=== PATIENT | female | born 1955 | race Caucasian/White ===

== ENCOUNTER 2022-01-21 21:33 | Inpatient (IN) | payer MEDICARE ==
[~2022-01-21] VITALS: Ht 167.6 cm; Wt 73.7 kg
[2022-01-21] MEDS ORDERED: methylPREDNISolone SOD SUCC PF 125 MG/2 ML VIAL. ONE (21:39)
[2022-01-21] MEDS ORDERED: methylPREDNISolone SOD SUCC PF 125 MG/2 ML VIAL. IV ONE (21:45)
[2022-01-21] MEDS ORDERED: cefTRIAXone IV Push 1 GM VIAL. IVP ONE (21:45)
[2022-01-21] MEDS ORDERED: IPRATRPIUM/ALBUTEROL 0.5/2.5MG 3 ML NEBU. NEB ONE (21:45)
[2022-01-21] MEDS ORDERED: ALBUTEROL SULFATE 2.5 MG/3 ML NEBU. NEB ONE (21:45)
[2022-01-21] MEDS ORDERED: IPRATRPIUM/ALBUTEROL 0.5/2.5MG 3 ML NEBU. ONE (21:47)
[2022-01-21] MEDS ORDERED: ALBUTEROL SULFATE 2.5 MG/3 ML NEBU. ONE (21:47)
[2022-01-21 21:56] LABS: BASO # 0.1 x10^3/uL (0.0-0.2); BASO % 1 % (0-3); EOS # 0.3 x10^3/uL (0.0-0.7); EOS % 2 % (0-3); HEMATOCRIT 49.9 % (36.0-47.0); HEMOGLOBIN 16.3 g/dL (12.0-15.5); LYMPH # 8.3 x10^3/uL (1.0-4.8); LYMPH % 49 % (24-48); MEAN CORPUSCULAR HEMOGLOBIN 32 pg (25-35); MEAN CORPUSCULAR HGB CONC 33 g/dL (31-37); MEAN CORPUSCULAR VOLUME 99 fL (79-100); MONO # 1.5 x10^3/uL (0.0-1.1); MONO % 9 % (0-9); NEUT # 6.7 x10^3/uL (1.8-7.7); NEUT % 39 % (31-73); PLATELET COUNT 345 x10^3/uL (140-400); RED BLOOD COUNT 5.06 x10^6/uL (3.50-5.40); RED CELL DISTRIBUTION WIDTH 12.9 % (11.5-14.5); WHITE BLOOD COUNT 16.9 x10^3/uL (4.0-11.0)
--- NOTE | 2022-01-21 22:04 | PHYS DOC ---
Past Medical History Past Surgical History: No Surgical History Smoking Status: Current Every Day Smoker Alcohol Use: None Adult General Chief Complaint Chief Complaint: DYSPNEA/RESPIRATORY DISTRESS HPI HPI The patient is a 66-year-old female with a history of hypertension and COPD not typically on home oxygen. She continues to smoke. She has no known other comorbidities. presents for evaluation of respiratory distress with onset 45 minutes to an hour prior to arrival. Patient states she suddenly had a hard time breathing at home. She called 911 and on EMS arrival she was noted to have a room air oxygen saturation of about 80% and to be somewhat cyanotic, though still appropriately responsive. Tachypnea, accessory muscle use and soft wheezes to all zhou were also noted during EMS transport. She was escalated t o nonrebreather oxygen support en route. Upon arrival to the emergency department patient has cyanosis of fingers and toes and is diaphoretic but remains alert, oriented and appropriately responsive. She is able to tell me that she has no pain anywhere including to her chest. Only symptom is shortness of breath. She moves all extremities equally. Vital signs are notable for tachycardia, tachypnea, diminished oxygen saturation on 15L by NRB (~85%), and hypertension. EKG obtained and shows no acute ischemic changes. Chest x-ray obtained and shows flattening of diaphragms but no pneumothorax, confluent infiltrate, overt pulmonary edema or other acute process in the chest. BiPAP initiated with inline bronchodilator therapy. Solu-Medrol given. Empiric Rocephin and azithromycin administered after cultures. ABG obtained and labs drawn. With all of the above interventions, patient is dramatically improved, pink, warm and dry with normalized vital signs. Review of Systems Review of Systems A 12 point review of systems was completed and was negative except where noted in HPI above. Current Medications Current Medications Current Medications Medications (Trade) Dose Ordered Sig/Terence Start Time Stop Time Status Last Admin Dose Admin Albuterol Sulfate (Ventolin Neb Soln) 2.5 mg 1X ONCE 01/21/22 21:45 01/21/22 22:05 DC 01/21/22 21:45 2.5 MG Albuterol/ Ipratropium (Duoneb) 3 ml 1X ONCE 01/21/22 21:45 01/21/22 22:05 DC 01/21/22 22:07 3 ML Azithromycin 500 mg/Sodium Chloride 250 ml @ 250 mls/hr 1X ONCE 01/21/22 22:15 01/21/22 23:14 DC 01/21/22 22:15 250 MLS/HR Ceftriaxone Sodium (Rocephin) 1 gm 1X ONCE 01/21/22 21:45 01/21/22 22:05 DC 01/21/22 21:45 1 GM Methylprednisolone Sodium Succinate (SOLU-Medrol 125MG VIAL) 125 mg 1X ONCE 01/21/22 21:45 01/21/22 22:05 DC 01/21/22 21:45 125 MG Ondansetron HCl (Zofran) 4 mg STK-MED ONCE 01/21/22 22:35 01/21/22 22:35 DC Allergies Allergies Allergies Coded Allergies Type Severity Reaction Last Updated Verified No Known Allergies Allergy Unknown 01/21/22 Yes Physical Exam Physical Exam 66-year-old female appearing acutely ill, diaphoretic and with cyanosis of fingers and toes. Head is normocephalic and atraumatic. Neck is supple and nontender. No JVD. Oropharynx is moist. Lungs with markedly diminished breath sounds to all zhou but soft wheezes noted globally without other adventitious sounds heard. Tachypnea and accessory muscle use also noted. There is a normal S1 and S2 without rubs or gallops and capillary refill is appropriate, less than 2 seconds globally. Abdomen is soft, nontender and nondistended without pulsatile mass. Skin is cool and moist and with distal cyanosis as above. Psychiatrically, the patient demonstrates appropriate mood and affect and is alert. Neurologically, patient is alert and oriented x4, moves all extremities equally and no lateralizing deficits are seen. Evaluation of the extremities reveals BUEs and BLEs neurovascularly intact distally with strength 5-5, sensation intact light touch in all nerve distributions, radial, DP and PT pulses 2+ and equal bilaterally, capillary refill less than 2 seconds, hands and feet warm and well-perfused. No dependent peripheral edema distally. No calf tenderness swelling bilaterally. Homans test is negative bilaterally. Current Patient Data Vital Signs Vital Signs Date Time Temp Pulse Resp B/P (MAP) Pulse Ox O2 Delivery O2 Flow Rate FiO2 01/21/22 22:35 126 20 161/109 (126) 100 BiPAP/CPAP 01/21/22 21:45 98.9 98.9 Lab Values Laboratory Tests Test 01/21/22 21:40 01/21/22 22:00 01/21/22 22:05 White Blood Count 16.9 x10^3/uL (4.0-11.0) H Red Blood Count 5.06 x10^6/uL (3.50-5.40) Hemoglobin 16.3 g/dL (12.0-15.5) H Hematocrit 49.9 % (36.0-47.0) H Mean Corpuscular Volume 99 fL (79-100) Mean Corpuscular Hemoglobin 32 pg (25-35) Mean Corpuscular Hemoglobin Concent 33 g/dL (31-37) Red Cell Distribution Width 12.9 % (11.5-14.5) Platelet Count 345 x10^3/uL (140-400) Neutrophils (%) (Auto) 39 % (31-73) Lymphocytes (%) (Auto) 49 % (24-48) H Monocytes (%) (Auto) 9 % (0-9) Eosinophils (%) (Auto) 2 % (0-3) Basophils (%) (Auto) 1 % (0-3) Neutrophils # (Auto) 6.7 x10^3/uL (1.8-7.7) Lymphocytes # (Auto) 8.3 x10^3/uL (1.0-4.8) H Monocytes # (Auto) 1.5 x10^3/uL (0.0-1.1) H Eosinophils # (Auto) 0.3 x10^3/uL (0.0-0.7) Basophils # (Auto) 0.1 x10^3/uL (0.0-0.2) Segmented Neutrophils % 39 % (35-66) Band Neutrophils % 1 % (0-9) Lymphocytes % 51 % (24-48) H Atypical Lymphocytes % (Manual) 2 % (0-0) H Monocytes % 5 % (0-10) Eosinophils % 2 % (0-5) Toxic Granulation Slight Platelet Estimate Adequate (ADEQUATE) Prothrombin Time 12.8 SEC (11.7-14.0) Prothrombin Time INR 1.0 (0.8-1.1) Activated Partial Thromboplast Time 23 SEC (24-38) L D-Dimer (Iman) 1.90 ug/mlFEU (0.00-0.50) H Sodium Level 137 mmol/L (136-145) Potassium Level 4.2 mmol/L (3.5-5.1) Chloride Level 98 mmol/L (98-107) Carbon Dioxide Level 22 mmol/L (21-32) Anion Gap 17 (6-14) H Blood Urea Nitrogen 23 mg/dL (7-20) H Creatinine 1.2 mg/dL (0.6-1.0) H Estimated GFR (Cockcroft-Gault) 44.7 BUN/Creatinine Ratio 19 (6-20) Glucose Level 305 mg/dL (70-99) H Lactic Acid Level 9.9 mmol/L (0.4-2.0) *H Calcium Level 9.1 mg/dL (8.5-10.1) Total Bilirubin 0.2 mg/dL (0.2-1.0) Aspartate Amino Transferase (AST) 21 U/L (15-37) Alanine Aminotransferase (ALT) 21 U/L (14-59) Alkaline Phosphatase 90 U/L (46-116) Troponin I High Sensitivity 51 ng/L (4-50) H LO-Mox-F-Type Natriuretic Peptide 726 pg/mL (0-124) H Total Protein 7.7 g/dL (6.4-8.2) Albumin 3.7 g/dL (3.4-5.0) Albumin/Globulin Ratio 0.9 (1.0-1.7) L Procalcitonin < 0.10 ng/mL (0.00-0.10) Influenza Type A Antigen Negative (NEGATIVE) Influenza Type B Antigen Negative (NEGATIVE) SARS-CoV-2 Antigen (Rapid) Negative (NEGATIVE) O2 Saturation 96 % (92-99) Arterial Blood pH 7.35 (7.35-7.45) Arterial Blood pCO2 at Patient Temp 38 mmHg (35-46) Arterial Blood pO2 at Patient Temp 94 mmHg (65-108) Arterial Blood HCO3 20 mmol/L (21-28) L Arterial Blood Base Excess -5 mmol/L (-3-3) L Oxyhemoglobin 94.2 % Methemoglobin 0.5 % (0.0-1.9) Carbon Monoxide, Quantitative 1.8 % (0.0-1.9) FiO2 100% Laboratory Tests 01/21/22 21:40 Laboratory Tests 01/21/22 21:40 EKG EKG Sinus rhythm, rate 118, no acute ST elevation or depression, PA 106, QRS 70, QTc 448, EP interpretation. Nonischemic tracing, intervals appropriate. Radiology/Procedures Radiology/Procedures Study: XR CHEST 1V Indication: Shortness of air. Comparison: None. Findings: Upper limits of normal size of the cardiomediastinal silhouette. Aortic calcific atherosclerosis. Patchy bilateral airspace opacities on background of increased interstitial markings. Quinten B lines. No layering effusion, lobar consolidation or pneumothorax. The bones appear osteopenic. Impression: Findings indicative of interstitial/alveolar edema. No layering effusion. A superimposed atypical infectious process is not excluded. Electronically signed by: PAULA SHANKAR MD (01/21/2022 10:09 PM) [facility] DICTATED and SIGNED BY: PAULA SHANKAR MD DATE: 01/21/222207 Exam: CT of chest with contrast INDICATION: Dyspnea, acute hypokalemia respiratory failure TECHNIQUE: Sequential axial images through the chest obtained following the administration of 90 mL of Isovue-370 IV contrast. Sagittal and coronal reformatted images were reconstructed from the axial data and reviewed. 3-D reformatted images were reconstructed from the axial data and reviewed. Exposure: One or more of the following in the visualized dose reduction techniques were utilized for this examination: 1. Automated exposure control 2. Adjustment of the MA and/or KV according to patient size 3. Use of iterative of reconstructive technique Comparisons: Chest x-ray same day FINDINGS: Visualized portions of the thyroid are unremarkable. No enlarged mediastinal lymph nodes are identified. Heart size is normal. No pericardial effusion. Thoracic aorta has normal course and caliber. Pulmonary artery is not enlarged. No pulmonary embolus identified within the main, lobar or segmental pulmonary arteries. Airways are patent. Mild bronchial wall thickening is noted. Patchy consolidative changes at the lower lobes. There is intralobular septal thickening in the diffuse ground glass opacity noted in the lungs. Moderate centrilobular emphysematous change at the upper lungs. No pleural effusion or thickening. Visualized upper abdomen is unremarkable. Benign lipid rich adenoma the right adrenal gland. Compression fracture of the T12 superior endplate with less than 25% height loss. IMPRESSION: 1. No pulmonary embolus identified within the main, lobar or segmental pulmonary arteries. 2. Patchy consolidative changes at the lower lobes. Infectious or inflammatory in etiology. 3. Intralobular septal thickening and diffuse ground glass opacity could relate to an element pulmonary edema. Electronically signed by: Blair Del Cid MD (01/21/2022 11:35 PM) [facility] DICTATED and SIGNED BY: BLAIR DEL CID MD DATE: 01/21/22 2330 Course & Med Decision Making Course & Med Decision Making Patient stabilized from a respiratory standpoint with the interventions noted in the narrative above. Awaiting lab work; plan is for inpatient admission. This is discussed with the patient who is in agreement. 2330: Patient resting comfortably in no acute distress on serial reassessments. Continues to feel much, much better. Able to speak comfortably in full sentences. Lungs are now clear to auscultation; no longer wheezing. Large work-up is as above, with borderline high-sensitivity troponin without any associated chest pain or any ischemic changes on EKG, elevated D-dimer with no evidence of PE on CT angiography of the chest, and a marked lactic acidemia. This was drawn on arrival with the patient was in severe respiratory distress; favor stress response and doubt sepsis. I have covered with Rocephin and azithromycin for infectious etiologies as above after cultures were drawn. A liter of crystalloid has also been given. Will follow 3-hour lactic acid level and serial troponins. BNP modestly elevated with some findings concerning for a component of mild congestive failure on CT angiography of the chest. Have therefore given a small dose of IV Lasix. BiPAP settings have been titrated down significantly. Proceeding with ICU admission at this time. Dr. Liane Casillas graciously accepts Ms. Alexander to her care. Critical care time today was 62 minutes. Dragon Disclaimer Dragon Disclaimer This electronic medical record was generated, in whole or in part, using a voice recognition dictation system. Departure Departure Impression: Primary Impression: COPD with acute exacerbation Additional Impressions: Acute hypoxemic respiratory failure Acute exacerbation of CHF (congestive heart failure) Disposition: ADMITTED INPATIENT Condition: GUARDED Problem Qualifiers Additional Impressions: Acute exacerbation of CHF (congestive heart failure) Heart failure type: unspecified Qualified Codes: I50.9 - Heart failure, unspecified EDWIGE WHEELER MD Jan 21, 2022 22:04
[2022-01-21 22:05] LABS: PROTHROMBIN TIME PATIENT 12.8 SEC (11.7-14.0)
[2022-01-21 22:08] LABS: CALCIUM 9.1 mg/dL (8.5-10.1); CREATININE 1.2 mg/dL (0.6-1.0); GFR 44.7; POTASSIUM 4.2 mmol/L (3.5-5.1)
[2022-01-21 22:11] LABS: BASE EXCESS COOX -5 mmol/L (-3-3); HCO3 COOX 20 mmol/L (21-28); METHEMOGLOBIN 0.5 % (0.0-1.9); OXYHEMOGLOBIN 94.2 %; PCO2 COOX 38 mmHg (35-46); PO2 COOX 94 mmHg (65-108); SAT O2 COOX 96 % (92-99)
--- NOTE | 2022-01-21 22:11 | RAD ---
Study: XR CHEST 1V Indication: Shortness of air. Comparison: None. Findings: Upper limits of normal size of the cardiomediastinal silhouette. Aortic calcific atherosclerosis. Patchy bilateral airspace opacities on background of increased interstitial markings. Quinten B lines. No layering effusion, lobar consolidation or pneumothorax. The bones appear osteopenic. Impression: Findings indicative of interstitial/alveolar edema. No layering effusion. A superimposed atypical inf ectious process is not excluded. Electronically signed by: PAULA SHANKAR MD (01/21/2022 10:09 PM) [facility]
[2022-01-21 22:14] LABS: ALBUMIN 3.7 g/dL (3.4-5.0); ALBUMIN/GLOBULIN RATIO 0.9 (1.0-1.7); TOTAL BILIRUBIN 0.2 mg/dL (0.2-1.0); TOTAL PROTEIN 7.7 g/dL (6.4-8.2)
[2022-01-21] MEDS ORDERED: AZITHROMYCIN 500 MG in IV NORMAL SALINE 250ML 250 ML IV ONE (22:15)
[2022-01-21 22:22] LABS: INFLUENZA A PATIENT NEGATIVE (NEGATIVE); INFLUENZA B PATIENT NEGATIVE (NEGATIVE)
[2022-01-21] MEDS ORDERED: ONDANSETRON PF 4 MG/2 ML VIAL. ONE (22:35)
[2022-01-21] MEDS ORDERED: IV NORMAL SALINE 1000ML BAG 1,000 ML IV ONE (22:45)
[2022-01-21] MEDS ORDERED: ONDANSETRON PF 4 MG/2 ML VIAL. IVP ONE (22:45)
[2022-01-21 23:06] LABS: % ATYL 2 % (0-0); % BANDS 1 % (0-9); % EOS 2 % (0-5); % LYMPHS 51 % (24-48); % MONOS 5 % (0-10); % SEGS 39 % (35-66); PLT ESTIMATE ADEQUATE (ADEQUATE); TOXIC GRANULATION SLIGHT
[2022-01-21] MEDS ORDERED: IOHEXOL 350 MG/ML 100 ML VIAL. IV ONE (23:15)
[2022-01-21] MEDS ORDERED: CONTRAST GIVEN. MC PRN (23:15)
--- NOTE | 2022-01-21 23:38 | RAD ---
Exam: CT of chest with contrast INDICATION: Dyspnea, acute hypokalemia respiratory failure TECHNIQUE: Sequential axial images through the chest obtained following the administration of 90 mL o f Isovue-370 IV contrast. Sagittal and coronal reformatted images were reconstructed from the axial d kwesi and reviewed. 3-D reformatted images were reconstructed from the axial data and reviewed. Exposure: One or more of the following in the visualized dose reduction techniques were utilized for this examination: 1. Automated exposure control 2. Adjustment of the MA and/or KV according to patient size 3. Use of iterative of reconstructive technique Comparisons: Chest x-ray same day FINDINGS: Visualized portions of the thyroid are unremarkable. No enlarged mediastinal lymph nodes are identifi ed. Heart size is normal. No pericardial effusion. Thoracic aorta has normal course and caliber. Pulmonar y artery is not enlarged. No pulmonary embolus identified within the main, lobar or segmental pulmona ry arteries. Airways are patent. Mild bronchial wall thickening is noted. Patchy consolidative changes at the lowe r lobes. There is intralobular septal thickening in the diffuse ground glass opacity noted in the alisson gs. Moderate centrilobular emphysematous change at the upper lungs. No pleural effusion or thickening . Visualized upper abdomen is unremarkable. Benign lipid rich adenoma the right adrenal gland. Compression fracture of the T12 superior endplate with less than 25% height loss. IMPRESSION: 1. No pulmonary embolus identified within the main, lobar or segmental pulmonary arteries. 2. Patchy consolidative changes at the lower lobes. Infectious or inflammatory in etiology. 3. Intralobular septal thickening and diffuse ground glass opacity could relate to an element pulmon russel edema. Electronically signed by: Blair Dodd MD (01/21/2022 11:35 PM) [facility]
[2022-01-22] VITALS (28 sets, daily range): BP systolic 105–150; BP diastolic 69–99
[2022-01-22] MEDS ORDERED: FUROSEMIDE 20 MG/2 ML VIAL. IVP ONE
[2022-01-22] MEDS ORDERED: ACETAMINOPHEN 325 MG TABLET. PO PRN (00:30)
[2022-01-22] MEDS ORDERED: ONDANSETRON PF 4 MG/2 ML VIAL. IVP PRN (00:30)
[2022-01-22] MEDS ORDERED: HEPARIN for IV BOLUS 10,000 UNIT/10 ML VIAL. IV PRN (01:45)
[2022-01-22] MEDS ORDERED: HEPARIN 25,000UTS/250ML PREMIX 250 ML IV PRN (01:45)
[2022-01-22] MEDS ORDERED: HEPARIN for IV BOLUS 10,000 UNIT/10 ML VIAL. IV ONE (01:45)
--- NOTE | 2022-01-22 02:11 | EKG ---
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
[2022-01-22] MEDS: IPRATRPIUM/ALBUTEROL 0.5/2.5MG 3 ML NEBU. NEB SCH ×4 (07:56→20:32)
--- NOTE | 2022-01-22 08:39 | PDOC ---
PULMONARY PROGRESS NOTES DATE: 01/22/22 TIME: 08:30 Vitals Vital Signs Date Time Temp Pulse Resp B/P (MAP) Pulse Ox O2 Delivery O2 Flow Rate FiO2 01/22/22 07:57 94 Nasal Cannula 4.0 01/22/22 06:00 98 20 106/71 (83) 01/22/22 04:00 97.6 97.6 Labs Laboratory Tests Test 01/21/22 21:40 01/21/22 22:00 01/21/22 22:05 01/22/22 00:50 White Blood Count 16.9 x10^3/uL (4.0-11.0) Red Blood Count 5.06 x10^6/uL (3.50-5.40) Hemoglobin 16.3 g/dL (12.0-15.5) Hematocrit 49.9 % (36.0-47.0) Mean Corpuscular Volume 99 fL (79-100) Mean Corpuscular Hemoglobin 32 pg (25-35) Mean Corpuscular Hemoglobin Concent 33 g/dL (31-37) Red Cell Distribution Width 12.9 % (11.5-14.5) Platelet Count 345 x10^3/uL (140-400) Neutrophils (%) (Auto) 39 % (31-73) Lymphocytes (%) (Auto) 49 % (24-48) Monocytes (%) (Auto) 9 % (0-9) Eosinophils (%) (Auto) 2 % (0-3) Basophils (%) (Auto) 1 % (0-3) Neutrophils # (Auto) 6.7 x10^3/uL (1.8-7.7) Lymphocytes # (Auto) 8.3 x10^3/uL (1.0-4.8) Monocytes # (Auto) 1.5 x10^3/uL (0.0-1.1) Eosinophils # (Auto) 0.3 x10^3/uL (0.0-0.7) Basophils # (Auto) 0.1 x10^3/uL (0.0-0.2) Segmented Neutrophils % 39 % (35-66) Band Neutrophils % 1 % (0-9) Lymphocytes % 51 % (24-48) Atypical Lymphocytes % (Manual) 2 % (0-0) Monocytes % 5 % (0-10) Eosinophils % 2 % (0-5) Toxic Granulation Slight Platelet Estimate Adequate (ADEQUATE) Prothrombin Time 12.8 SEC (11.7-14.0) Prothromb Time International Ratio 1.0 (0.8-1.1) Activated Partial Thromboplast Time 23 SEC (24-38) D-Dimer (Iman) 1.90 ug/mlFEU (0.00-0.50) Sodium Level 137 mmol/L (136-145) Potassium Level 4.2 mmol/L (3.5-5.1) Chloride Level 98 mmol/L (98-107) Carbon Dioxide Level 22 mmol/L (21-32) Anion Gap 17 (6-14) Blood Urea Nitrogen 23 mg/dL (7-20) Creatinine 1.2 mg/dL (0.6-1.0) Estimated GFR (Cockcroft-Gault) 44.7 BUN/Creatinine Ratio 19 (6-20) Glucose Level 305 mg/dL (70-99) Lactic Acid Level 9.9 mmol/L (0.4-2.0) 2.6 mmol/L (0.4-2.0) Calcium Level 9.1 mg/dL (8.5-10.1) Total Bilirubin 0.2 mg/dL (0.2-1.0) Aspartate Amino Transf (AST/SGOT) 21 U/L (15-37) Alanine Aminotransferase (ALT/SGPT) 21 U/L (14-59) Alkaline Phosphatase 90 U/L (46-116) Troponin I High Sensitivity 51 ng/L (4-50) 1241 ng/L (4-50) AV-Bjg-J-Type Natriuretic Peptide 726 pg/mL (0-124) Total Protein 7.7 g/dL (6.4-8.2) Albumin 3.7 g/dL (3.4-5.0) Albumin/Globulin Ratio 0.9 (1.0-1.7) Procalcitonin < 0.10 ng/mL (0.00-0.10) Influenza Type A Antigen Negative (NEGATIVE) Influenza Type B Antigen Negative (NEGATIVE) SARS-CoV-2 Antigen (Rapid) Negative (NEGATIVE) O2 Saturation 96 % (92-99) Arterial Blood pH 7.35 (7.35-7.45) Arterial Blood pCO2 at Patient Temp 38 mmHg (35-46) Arterial Blood pO2 at Patient Temp 94 mmHg (65-108) Arterial Blood HCO3 20 mmol/L (21-28) Arterial Blood Base Excess -5 mmol/L (-3-3) Oxyhemoglobin 94.2 % Methemoglobin 0.5 % (0.0-1.9) Carbon Monoxide, Quantitative 1.8 % (0.0-1.9) FiO2 100% Test 01/22/22 03:50 Troponin I High Sensitivity 1314 ng/L (4-50) Laboratory Tests Test 01/21/22 21:40 01/21/22 22:00 01/21/22 22:05 01/22/22 00:50 White Blood Count 16.9 x10^3/uL (4.0-11.0) Red Blood Count 5.06 x10^6/uL (3.50-5.40) Hemoglobin 16.3 g/dL (12.0-15.5) Hematocrit 49.9 % (36.0-47.0) Mean Corpuscular Volume 99 fL (79-100) Mean Corpuscular Hemoglobin 32 pg (25-35) Mean Corpuscular Hemoglobin Concent 33 g/dL (31-37) Red Cell Distribution Width 12.9 % (11.5-14.5) Platelet Count 345 x10^3/uL (140-400) Neutrophils (%) (Auto) 39 % (31-73) Lymphocytes (%) (Auto) 49 % (24-48) Monocytes (%) (Auto) 9 % (0-9) Eosinophils (%) (Auto) 2 % (0-3) Basophils (%) (Auto) 1 % (0-3) Neutrophils # (Auto) 6.7 x10^3/uL (1.8-7.7) Lymphocytes # (Auto) 8.3 x10^3/uL (1.0-4.8) Monocytes # (Auto) 1.5 x10^3/uL (0.0-1.1) Eosinophils # (Auto) 0.3 x10^3/uL (0.0-0.7) Basophils # (Auto) 0.1 x10^3/uL (0.0-0.2) Segmented Neutrophils % 39 % (35-66) Band Neutrophils % 1 % (0-9) Lymphocytes % 51 % (24-48) Atypical Lymphocytes % (Manual) 2 % (0-0) Monocytes % 5 % (0-10) Eosinophils % 2 % (0-5) Toxic Granulation Slight Platelet Estimate Adequate (ADEQUATE) Prothrombin Time 12.8 SEC (11.7-14.0) Prothromb Time International Ratio 1.0 (0.8-1.1) Activated Partial Thromboplast Time 23 SEC (24-38) D-Dimer (Iman) 1.90 ug/mlFEU (0.00-0.50) Sodium Level 137 mmol/L (136-145) Potassium Level 4.2 mmol/L (3.5-5.1) Chloride Level 98 mmol/L (98-107) Carbon Dioxide Level 22 mmol/L (21-32) Anion Gap 17 (6-14) Blood Urea Nitrogen 23 mg/dL (7-20) Creatinine 1.2 mg/dL (0.6-1.0) Estimated GFR (Cockcroft-Gault) 44.7 BUN/Creatinine Ratio 19 (6-20) Glucose Level 305 mg/dL (70-99) Lactic Acid Level 9.9 mmol/L (0.4-2.0) 2.6 mmol/L (0.4-2.0) Calcium Level 9.1 mg/dL (8.5-10.1) Total Bilirubin 0.2 mg/dL (0.2-1.0) Aspartate Amino Transf (AST/SGOT) 21 U/L (15-37) Alanine Aminotransferase (ALT/SGPT) 21 U/L (14-59) Alkaline Phosphatase 90 U/L (46-116) Troponin I High Sensitivity 51 ng/L (4-50) 1241 ng/L (4-50) YQ-Lbd-N-Type Natriuretic Peptide 726 pg/mL (0-124) Total Protein 7.7 g/dL (6.4-8.2) Albumin 3.7 g/dL (3.4-5.0) Albumin/Globulin Ratio 0.9 (1.0-1.7) Procalcitonin < 0.10 ng/mL (0.00-0.10) Influenza Type A Antigen Negative (NEGATIVE) Influenza Type B Antigen Negative (NEGATIVE) SARS-CoV-2 Antigen (Rapid) Negative (NEGATIVE) O2 Saturation 96 % (92-99) Arterial Blood pH 7.35 (7.35-7.45) Arterial Blood pCO2 at Patient Temp 38 mmHg (35-46) Arterial Blood pO2 at Patient Temp 94 mmHg (65-108) Arterial Blood HCO3 20 mmol/L (21-28) Arterial Blood Base Excess -5 mmol/L (-3-3) Oxyhemoglobin 94.2 % Methemoglobin 0.5 % (0.0-1.9) Carbon Monoxide, Quantitative 1.8 % (0.0-1.9) FiO2 100% Test 01/22/22 03:50 Troponin I High Sensitivity 1314 ng/L (4-50) Impression . Full consult dictated see orders mostly CHF SYMONE RANDLE MD Jan 22, 2022 08:39
--- NOTE | 2022-01-22 10:41 | PDOC2 ---
JUAN MOYER FILTER PRESS PUMPER 01/22/22 1041: CARDIAC CONSULT DATE OF CONSULT Date of Consult DATE: 01/22/22 TIME: 10:20 REASON FOR CONSULT Reason for Consult: Acute respiratory failure, CHF REFERRING PHYSICIAN Referring Physician: Lily SOURCE Source: Chart review, Patient HISTORY OF PRESENT ILLNESS HISTORY OF PRESENT ILLNESS This is a pleasant 66 yo female admitted for complains of shortness of breath. Reports that she was walking up to her driveway yesterday with no chest pain and able to tolerate the activity but upon getting in the house she suddenly started having SOA. No chest pain, palpitations. No recent infection, antibiotic therapy or steroid therapy. No recent falls or injury. She was told that she has mild COPD and continues to smoke tobacco. No prior CAD, VTE, arrhythmia or covid-19. She is vaccinated for covid-19. also she had rheumatic fever as a child and has hx of murmur. Reports no recent stress test. She takes HTN, HLP meds but does not take ASA. No complains of fatigue or intermittent chest pain. She does have some bloating sometimes but more with the type of food she takes. She was treated with albuterol small dose lasix in ED and had bipap overnight and currently no respiratory symptoms and remains with no chest pain. No leg swelling, PND or orthopnea. PAST MEDICAL HISTORY Cardiovascular: HTN, Hyperlipidemia, Other (rheumatic fever) Pulmonary: COPD CENTRAL NERVOUS SYSTEM: Other (No pertinent history) GI: GERD Heme/Onc: No pertinent hx Hepatobiliary: No pertinent hx Psych: No pertinent hx Musculoskeletal: Osteoarthritis Rheumatologic: No pertinent hx Infectious disease: No pertinent hx ENT: No pertinent hx Renal/: UTI Endocrine: No pertinent hx Dermatology: No pertinent hx PAST SURGICAL HISTORY Past Surgical History: Total hip replacement (bilateral), Other (possible ureteral stent placement based on her description) FAMILY HISTORY Family History noncontributory to CV SOCIAL HISTORY Smoke: <1 pack per day (50 yrs) ALCOHOL: other (2 vodka shots nightly) Drugs: None Lives: Alone CURRENT MEDICATIONS CURRENT MEDICATIONS Current Medications Medications (Trade) Dose Ordered Sig/Terence Route PRN Reason Start Time Stop Time Status Last Admin Dose Admin Methylprednisolone Sodium Succinate (SOLU-Medrol 125MG VIAL) 125 mg 1X ONCE IV 01/21/22 21:45 01/21/22 22:05 DC 01/21/22 21:45 Albuterol/ Ipratropium (Duoneb) 3 ml 1X ONCE NEB 01/21/22 21:45 01/21/22 22:05 DC 01/21/22 22:07 Albuterol Sulfate (Ventolin Neb Soln) 2.5 mg 1X ONCE NEB 01/21/22 21:45 01/21/22 22:05 DC 01/21/22 21:45 Ceftriaxone Sodium (Rocephin) 1 gm 1X ONCE IVP 01/21/22 21:45 01/21/22 22:05 DC 01/21/22 21:45 Azithromycin 500 mg/Sodium Chloride 250 ml @ 250 mls/hr 1X ONCE IV 01/21/22 22:15 01/21/22 23:14 DC 01/21/22 22:15 Sodium Chloride 1,000 ml @ 1,000 mls/hr 1X ONCE IV 01/21/22 22:45 01/21/22 23:44 DC 01/21/22 22:42 Ondansetron HCl (Zofran) 4 mg 1X ONCE IVP 01/21/22 22:45 01/21/22 22:46 DC 01/21/22 22:42 Iohexol (Omnipaque 350 Mg/ml) 90 ml 1X ONCE IV 01/21/22 23:15 01/21/22 23:16 DC 01/21/22 23:10 Furosemide (Lasix) 20 mg 1X ONCE IVP 01/22/22 00:00 01/22/22 00:01 DC 01/22/22 01:18 Albuterol/ Ipratropium (Duoneb) 3 ml RTQID NEB 01/22/22 08:00 01/23/22 07:59 01/22/22 07:56 Heparin Sodium (Porcine) (Heparin Sodium) 4,000 unit 1X ONCE IV 01/22/22 01:45 01/22/22 01:46 DC 01/22/22 01:45 ALLERGIES ALLERGIES: Coded Allergies: No Known Allergies (Verified Allergy, Unknown, 01/21/22) ROS Review of System 14 point ROS evaluated with pertinent positives noted per HPI PHYSICAL EXAM General: Alert, Oriented X3, Cooperative, No acute distress HEENT: Atraumatic, Mucous membr. moist/pink Lungs: Other (diminished bases) Heart: Regular rate (ST), Normal S1, Normal S2, Other (2/6 systolic murmur to LLS border) Abdomen: Soft, No tenderness Extremities: No cyanosis, No edema Skin: No breakdown, No significant lesion Neuro: Normal speech, Sensation intact Psych/Mental Status: Mental status NL, Mood NL MUSCULOSKELETAL: Osteoarthritic changes both hands VITALS/I&O VITALS/I&O: Vital Signs Date Time Temp Pulse Resp B/P (MAP) Pulse Ox O2 Delivery O2 Flow Rate FiO2 01/22/22 07:57 94 Nasal Cannula 4.0 01/22/22 06:00 98 20 106/71 (83) 01/22/22 04:00 97.6 97.6 I & O 01/21/22 01/21/22 01/22/22 14:59 22:59 06:59 Intake Total 275 ml Output Total 400 ml Balance -125 ml LABS Lab: Laboratory Tests Test 01/21/22 21:40 01/21/22 22:00 01/21/22 22:05 01/22/22 00:50 White Blood Count 16.9 x10^3/uL (4.0-11.0) H Red Blood Count 5.06 x10^6/uL (3.50-5.40) Hemoglobin 16.3 g/dL (12.0-15.5) H Hematocrit 49.9 % (36.0-47.0) H Mean Corpuscular Volume 99 fL (79-100) Mean Corpuscular Hemoglobin 32 pg (25-35) Mean Corpuscular Hemoglobin Concent 33 g/dL (31-37) Red Cell Distribution Width 12.9 % (11.5-14.5) Platelet Count 345 x10^3/uL (140-400) Neutrophils (%) (Auto) 39 % (31-73) Lymphocytes (%) (Auto) 49 % (24-48) H Monocytes (%) (Auto) 9 % (0-9) Eosinophils (%) (Auto) 2 % (0-3) Basophils (%) (Auto) 1 % (0-3) Neutrophils # (Auto) 6.7 x10^3/uL (1.8-7.7) Lymphocytes # (Auto) 8.3 x10^3/uL (1.0-4.8) H Monocytes # (Auto) 1.5 x10^3/uL (0.0-1.1) H Eosinophils # (Auto) 0.3 x10^3/uL (0.0-0.7) Basophils # (Auto) 0.1 x10^3/uL (0.0-0.2) Segmented Neutrophils % 39 % (35-66) Band Neutrophils % 1 % (0-9) Lymphocytes % 51 % (24-48) H Atypical Lymphocytes % (Manual) 2 % (0-0) H Monocytes % 5 % (0-10) Eosinophils % 2 % (0-5) Toxic Granulation Slight Platelet Estimate Adequate (ADEQUATE) Prothrombin Time 12.8 SEC (11.7-14.0) Prothrombin Time INR 1.0 (0.8-1.1) Activated Partial Thromboplast Time 23 SEC (24-38) L D-Dimer (Iman) 1.90 ug/mlFEU (0.00-0.50) H Sodium Level 137 mmol/L (136-145) Potassium Level 4.2 mmol/L (3.5-5.1) Chloride Level 98 mmol/L (98-107) Carbon Dioxide Level 22 mmol/L (21-32) Anion Gap 17 (6-14) H Blood Urea Nitrogen 23 mg/dL (7-20) H Creatinine 1.2 mg/dL (0.6-1.0) H Estimated GFR (Cockcroft-Gault) 44.7 BUN/Creatinine Ratio 19 (6-20) Glucose Level 305 mg/dL (70-99) H Lactic Acid Level 9.9 mmol/L (0.4-2.0) *H 2.6 mmol/L (0.4-2.0) H Calcium Level 9.1 mg/dL (8.5-10.1) Total Bilirubin 0.2 mg/dL (0.2-1.0) Aspartate Amino Transferase (AST) 21 U/L (15-37) Alanine Aminotransferase (ALT) 21 U/L (14-59) Alkaline Phosphatase 90 U/L (46-116) Troponin I High Sensitivity 51 ng/L (4-50) H 1241 ng/L (4-50) H CB-Xnw-E-Type Natriuretic Peptide 726 pg/mL (0-124) H Total Protein 7.7 g/dL (6.4-8.2) Albumin 3.7 g/dL (3.4-5.0) Albumin/Globulin Ratio 0.9 (1.0-1.7) L Procalcitonin < 0.10 ng/mL (0.00-0.10) Influenza Type A Antigen Negative (NEGATIVE) Influenza Type B Antigen Negative (NEGATIVE) SARS-CoV-2 Antigen (Rapid) Negative (NEGATIVE) O2 Saturation 96 % (92-99) Arterial Blood pH 7.35 (7.35-7.45) Arterial Blood pCO2 at Patient Temp 38 mmHg (35-46) Arterial Blood pO2 at Patient Temp 94 mmHg (65-108) Arterial Blood HCO3 20 mmol/L (21-28) L Arterial Blood Base Excess -5 mmol/L (-3-3) L Oxyhemoglobin 94.2 % Methemoglobin 0.5 % (0.0-1.9) Carbon Monoxide, Quantitative 1.8 % (0.0-1.9) FiO2 100% Test 01/22/22 03:50 01/22/22 08:15 Troponin I High Sensitivity 1314 ng/L (4-50) H Heparin Anti-Xa Act, Unfractionated 0.32 IU/mL (0.30-0.70) Laboratory Tests 01/21/22 21:40 Laboratory Tests 01/21/22 21:40 ASSESSMENT/PLAN ASSESSMENT/PLAN 1. NSTEMI: trop continues to trend up, abnormal EKG. 2. HTN: initially labile 3. HLP: on home statin 4. AECOPD with continued tobacco use: per pulmonary 5. Lactic acidosis 6. Leukocytosis 7. Diastolic CHF: compensated Recommendations 1. TTE, repeat troponin and EKG. 2. Pretest probability is high for CAD. [facility] this afternoon, risks and benefits discussed and agreeable to proceed 3. ASA, continue heparin AURORA GONZALEZ MD 01/22/222055: CARDIAC CONSULT ASSESSMENT/PLAN ASSESSMENT/PLAN Patient seen and examined. Agree with PATHOLOGY TECHNOLOGIST's assessment and plan. Agree with cardiac cath for further evaluation of patient's NSTEMI Check 2D echo to assess LVF Continue management of AECOPD per pulm team Thank you for your consultation JUAN MOYER APRN Jan 22, 2022 10:41 AURORA GONZALEZ MD Jan 22, 2022 20:56
--- NOTE | 2022-01-22 11:01 | EKG ---
[facility] [address] [place] [address] Test Date: 2022-01-22 Test Time: 10:55:44 Pat Name: ARACELI GRAJEDA Department: Room: 115 1 Gender: F Network Operations Analyst: FERMIN : 1955 Requested By: JUAN MOYER Order Number: [id number] Reading MD: Claudio Rodriguez Measurements Intervals Jackman Rate: 94 P: 27 NH: 168 QRS: 21 QRSD: 74 T: 152 QT: 394 QTc: 499 Interpretive Statements SINUS RHYTHM LVH WITH REPOLARIZATION ABNORMALITY PROLONGED QT ABNORMAL ECG Electronically Signed On 02-01-2022 9:06:47 CDT by Claudio Rodriguez
[2022-01-22 11:19] LABS: CHOLESTEROL/HDL RATIO 1.7
[2022-01-22] MEDS ORDERED: AZITHROMYCIN 250 MG TABLET. PO ONE (12:00)
[2022-01-22] MEDS ORDERED: FUROSEMIDE 40 MG/4 ML VIAL. IVP ONE (12:00)
[2022-01-22] MEDS ORDERED: IV NORMAL SALINE 1000ML BAG 1,000 ML IV ONE (12:15)
[2022-01-22] MEDS ORDERED: ASPIRIN ENTERIC COATED 325 MG TABLET.DR. PO ONE (12:15)
--- NOTE | 2022-01-22 12:47 | CONS ---
DATE OF CONSULTATION: 01/22/2022 ATTENDING PHYSICIAN: Dr. Casillas. REASON FOR CONSULTATION: The patient is seen in pulmonary consultation at the request of Dr. Campos for abnormal x-ray. HISTORY OF PRESENT ILLNESS: The patient is a 66-year-old that presented to the Emergency Room with a history of hypertension, COPD, not on home oxygen. She continues to smoke. Presented with acute onset of shortness of breath, not associated with chest pain or pressure. Apparently, she was taken up a trash and became severely short of breath. EMS was summoned. Initially, she had saturations of 80%, she was placed on a nonrebreather, presented to the Emergency Room. The Emergency Room physician ordered an x-ray, which I personally reviewed. There is evidence of pulmonary infiltrates compatible with acute pulmonary edema. She was initially placed on noninvasive ventilation, started on Solu-Medrol, given empiric antibiotics and some IV Lasix, was transferred to the intensive care unit. She is currently off of BiPAP. She is on nasal cannula oxygen. She has a cough, mostly nonproductive. She feels better. She has never had anything like this happened to her in the past. She has been seen by Cardiology. Manager Psychiatry felt like that she had a non-ST segment elevation [place]. A TTE is currently pending. PAST MEDICAL HISTORY: Tobacco dependent, COPD, unknown FEV1. She does not experience frequent acute exacerbations. She has also a history of osteoarthritis to be specific. Hyperlipidemia, gastroesophageal reflux. PAST SURGICAL HISTORY: None. ALLERGIES: No known drug allergies. REVIEW OF SYSTEMS: As indicated above, otherwise a 10-point system was reviewed and negative. PHYSICAL EXAMINATION: CONSTITUTIONAL: No fever or chills. EYES: No change in visual acuity. HENT: No nasal congestion or sore throat. PULMONARY: As indicated above. CARDIOVASCULAR: As indicated above. GASTROINTESTINAL: No nausea, vomiting, diarrhea. GENITOURINARY: No dysuria or frequency. MUSCULOSKELETAL: No localized muscle aches or joint pains. SKIN: No new skin rashes. NEUROLOGIC: No headaches, diplopia or blurred vision. VACCINATION HISTORY: She is up-to-date on COVID, flu and pneumonia. MEDICATIONS: List was reviewed. She is currently on furosemide, heparin drip. PHYSICAL EXAMINATION: GENERAL: The patient appeared to be stated age. She was in no respiratory distress. VITAL SIGNS: Stable. O2 saturation was greater than 92%, currently on 2 liters. HEENT: Eyes: The sclerae were nonicteric. NECK: Jugular venous distention was not elevated. No lymphadenopathy. CHEST: Full expansion. LUNGS: Crackles in the bases. No wheezes. CARDIOVASCULAR: Regular rate and rhythm with S1, S2, no S3. ABDOMEN: Soft, nontender, nondistended. EXTREMITIES: No clubbing, cyanosis or edema. DIAGNOSTIC DATA: CT angiogram was performed. I personally reviewed it. There is no evidence of pulmonary embolism. There are infiltrates compatible with pulmonary edema. In addition, CTs are reviewed as indicated above. There are patchy consolidative changes in the lower lobe. There is interlobular septal thickening, ground glass opacities compatible with pulmonary edema. LABORATORY DATA: Labs were reviewed. White count was elevated. Hemoglobin and hematocrit were noted. Arterial blood gas; pH of 7.35, PaCO2 of 38, pO2 of 94. Electrolytes were noted. Lactic acid level initially elevated. Troponin was elevated. BUN and creatinine were elevated. IMPRESSION: 1. Acute hypoxemic respiratory failure, multifactorial. 2. Acute pulmonary edema, suspect diastolic. 3. Non-ST segment elevation myocardial infarction. 4. Abnormal CT chest revealing some consolidation in the lower bases, possible concomitant pneumonia. 5. Acute exacerbation of chronic obstructive pulmonary disease. 6. Tobacco dependent. 7. Hypertension. 8. Hyperlipidemia. PLAN: 1. Continue current support with oxygen supplementation. 2. Empiric antibiotics. 3. Follow Cardiology input. 4. IV Lasix. 5. Repeat CT chest in 6-8 weeks. 6. The patient is instructed on the importance of discontinued tobacco use. 7. I reviewed her sleep hygiene. Clinically, I do not think that the patient has obstructive sleep apnea. I do appreciate the privilege in sharing in the patient's care. Total cumulative critical care time of [address]: Erica TID: [id number]
--- NOTE | 2022-01-22 13:09 | HP ---
DATE OF SERVICE: 01/22/2022 ADMIT DATE: 01/21/2022 CHIEF COMPLAINT: Shortness of breath. HISTORY OF PRESENT ILLNESS: The patient is a pleasant, middle-aged female who has COPD and continues to smoke. She presented to the ER with shortness of breath. At first, we were concerned she might be having respiratory failure secondary to COPD and that could be a mild component of it, but actually, we suspect this might actually be cardiac in nature with heart failure and possible coronary artery disease. She has got elevations of her troponin to 1300, then we repleted it, it is up to 1700. She is now on a heparin drip in the ICU. She is going to cardiac cath this afternoon. PAST MEDICAL HISTORY: COPD, continued tobacco abuse, hypertension, hyperlipidemia, GERD, osteoarthritis, UTI. ALLERGIES: None. FAMILY HISTORY: Coronary artery disease. SOCIAL HISTORY: She is retired. She does smoke. No drink or drugs. MEDICATIONS: Reviewed. Please refer to the MRAD. REVIEW OF SYSTEMS: GENERAL: No history of weight change, weakness or fevers. SKIN: No bruising, hair changes or rashes. EYES: No blurred, double or loss of vision. NOSE AND THROAT: No history of nosebleeds, hoarseness or sore throat. HEART: No history of palpitations, chest pain or shortness of breath on exertion. LUNGS: Denies cough, hemoptysis, wheezing or shortness of breath. GASTROINTESTINAL: Denies changes in appetite, nausea, vomiting, diarrhea or constipation. GENITOURINARY: No history of frequency, urgency, hesitancy or nocturia. NEUROLOGIC: Denies history of numbness, tingling, tremor or weakness. PSYCHIATRIC: No history of panic, anxiety or depression. ENDOCRINE: No history of heat or cold intolerance, polyuria or polydipsia. EXTREMITIES: Denies muscle weakness, joint pain, pain on walking or stiffness. PHYSICAL EXAMINATION: VITALS: Within normal limits and are stable. GENERAL: No apparent distress. Alert and oriented. HEENT: Normal cephalic atraumatic, external auditory canals are patent. EYES: Extraocular muscles are intact, pupils are equally round and reactive to light and accommodation. MUSCULOSKELETAL: Well developed, well nourished, good range of motion. ENDOCRINE: No thyromegaly was palpated. LYMPHATICS: No cervical chain or axillary nodes were noted. HEMATOPOIETIC: No bruising. NECK: Supple, no JVD, no thyromegaly was noted. LUNGS: Clear to auscultation in all lung zhou without rhonchi or wheezing. HEART: RRR, S1, S2 present. Peripheral pulses intact, no obvious murmurs were noted. ABDOMEN: Soft, nontender. Positive bowel sounds. No organomegaly, normal bowel sounds. EXTREMITIES: Without any cyanosis, clubbing, or edema. Pedal pulses intact, Homans sign is negative. NEUROLOGIC: Normal speech, normal tone. A and O x 3, moves all extremities, no obvious focal deficits. PSYCHIATRIC: Normal affect, normal mood. Stable. SKIN: No ulcerations or rashes, good skin turgor, no jaundice. VASCULAR: Good capillary refill, neurovascular bundle appears to be intact. LABORATORY DATA: Troponin is 1702. ASSESSMENT AND PLAN: Shortness of breath with acute on chronic systolic and diastolic heart failure, suspect underlying coronary artery disease. We have consulted Cardiology. We have her on a heparin drip. She is going for cardiac catheterization this afternoon. Home medications. Deep vein thrombosis prophylaxis. Full code. Await cardiac catheterization results. FRANKLIN DR: LETI/lenard TID: [id number]
[2022-01-22] MEDS ORDERED: LIDOCAINE 1% PF 2 ML VIAL. ONE (14:38)
[2022-01-22] MEDS ORDERED: IODIXANOL 320 MG/ML 100 ML VIAL. ONE (14:38)
[2022-01-22] MEDS ORDERED: fentaNYL PF VIAL 100 MCG/2 ML VIAL ONE (15:23)
[2022-01-22] MEDS ORDERED: MIDAZOLAM HCL/PF 2 MG/2 ML VIAL. ONE (15:24)
[2022-01-22] MEDS ORDERED: HEPARIN for IV BOLUS 10,000 UNIT/10 ML VIAL. ONE (15:24)
[2022-01-22] MEDS ORDERED: NITROGLYCERIN 200 MCG/2 ML SYRINGE FOR CATH/VASC LAB. ONE (15:24)
[2022-01-22] MEDS ORDERED: VERAPAMIL 5 MG/2 ML VIAL. ONE (15:24)
--- NOTE | 2022-01-22 15:32 | PDOC ---
MODERATE SEDATION ASSESSMENT RISKS/ALTERNATIVES Risks/Alternatives Risks and alternatives of this type of sedation and procedure discussed with: RISK/ALTERNATIVES: Patient H & P ON CHART H & P H & P on chart and reviewed for co-morbid conditions and appropriate labs. H&P ON CHART: Yes STATUS PREG STATUS ASSESSED: N/A MEDS/ALLERGIES REVIEWED Meds/Allergies Reviewed Medications and Allergies including time and route of recently administered narcotics and sedatives. MEDS/ALLERGIES REVIEWED: Yes ASA RATING ASA RATING: II AIRWAY ASSESSMENT Airway Assessment Airway patency, oral function limitations, presence of caps, crowns, dentures, partials, and ability to extend neck assessed. AIRWAY ASSESSMENT: Yes MALLAMPATI SCORE MALLAMPATI SCORE: II PRE-SEDATION ASSESSMENT PRE-SEDATION ASSESSMENT: Yes AURORA GONZALEZ MD Jan 22, 2022 15:32
[2022-01-22] MEDS ORDERED: VERAPAMIL 5 MG/2 ML VIAL. IART ONE (15:45)
[2022-01-22] MEDS ORDERED: fentaNYL PF VIAL 100 MCG/2 ML VIAL IV ONE (15:45)
[2022-01-22] MEDS ORDERED: HEPARIN for IV BOLUS 10,000 UNIT/10 ML VIAL. IART ONE (15:45)
[2022-01-22] MEDS ORDERED: CONTRAST GIVEN. MC PRN (15:45)
[2022-01-22] MEDS ORDERED: NITROGLYCERIN 200 MCG/2 ML SYRINGE FOR CATH/VASC LAB. IART ONE (15:45)
[2022-01-22] MEDS ORDERED: MIDAZOLAM HCL/PF 2 MG/2 ML VIAL. IV ONE (15:45)
[2022-01-22] MEDS ORDERED: IODIXANOL 320 MG/ML 100 ML VIAL. IART ONE (15:45)
[2022-01-22] MEDS ORDERED: LIDOCAINE 1% PF 2 ML VIAL. INJ ONE (15:45)
--- NOTE | 2022-01-22 16:12 | CARD ---
MR#: [id number] Date of Study: 01/22/2022 Ordering Physician: JUAN MOYER, Referring Physician: JUAN MOYER, Tech: RT Jesus Manuel(R)() APPROVED REPORT Technologist: Misti Padgett RT(R)() Nurse: Melody Bhatti RN Procedure(s) performed: Left heart catheterization, selective coronary angiography and left ventricul ography via right transradial approach Fluoro time: 3.2 min Dose:35.6 Gycm2 Contrast:103ccs Mod Sed:24min. INDICATION The indication(s) include : non-STEMI . [facility] Clinical Frailty Scale [facility] Clinical Frailty Scale: Mildly Frail Heart Failure Heart Failure: No If Yes, Newly Diagnosed: No CASE TECHNIQUE IV conscious sedation was used throughout procedure with appropriate monitoring and was performed in the presence of a registered nurse who was an independent trained observer other than the physician p erforming the procedure. During this case, Fluoroscopy and low osmolar contrast were used for imaging . Specimen(s) Removed: No Estimated Blood loss: 15 cc's. PROCEDURE NARRATIVE After explaining the risks, benefits and alternative options, informed consent was obtained from doni ent. Patient was brought to the cardiac [employer] and right wrist was prepped and draped in the usual fashion after confirming a positive modified Jonah's test. Arterial access was obtained in the righ t radial artery and a 6 [place] sheath was inserted. 6 [place] Elvin catheter was used to perform sb ective angiography of the left and right coronary arteries. 6 [place] pigtail catheter was used to pe rform left ventriculography. Patient tolerated the procedure well. Hemostasis was achieved using TR band. There were no immediate complications. The following findings were noted. FINDINGS 1. Hemodynamics: Elevated left ventricular end-diastolic pressure of 25 mmHg consistent with acute s ystolic heart failure. No pullback gradient across the aortic valve. 2. Left ventriculography: Severe hypokinesis of the mid to distal myocardial segments and hyperdynam ic basal segments, pattern consistent with Takotsubo's cardiomyopathy. The ejection fraction is junaid mated at 35%. No significant mitral regurgitation seen. 3. Coronary angiography: a. The left main coronary artery arose from the left sinus of Valsalva, gave rise to the left anteri or descending and left circumflex arteries and did not show any significant stenosis. b. The left anterior descending artery did not show any significant stenosis. c. The left circumflex artery did not show any significant stenosis. d. The right coronary artery was a large and dominant vessel arising from the right sinus of Valsalv a that did not show any significant stenosis. Conclusion 1. No significant coronary artery disease 2. Severe hypokinesis of the mid to distal myocardial segments and hyperdynamic basal segments, cathy jesús consistent with Takotsubo's cardiomyopathy. The ejection fraction is estimated at 35%. Recommendations Optimization of medical therapy including beta-blockers and repeat 2D echo in 3 months. Signed by : Claudio Rodriguez, Electronically Approved : 01/22/2022 16:12:06
--- NOTE | 2022-01-22 17:20 | NUR ---
Pt had heparin gtt infusing this morning, cardiology came and saw pt, decided to cath her at 1530, pt signed consent, family and pt agreeable with plan. 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 pt back with JORDON hoff, site WDL, air released per protocol. Addendum: 01/22/22 at 1936 by ELIAS TOLBERT RN IV LASIX WAS NOT GIVEN EARLIER CARDIOLOGY THEN STATED THEY WANTED HYDRATION FOR PROCEDURE AND PT DID NOT WANT TO HAVE TO URINATE DURING CARDIAC CATH. PT NOT SOB OR SHOWING ANY SIGNS OF OVERT FLUID OVERLOAD, ABLE TO LAY COMPLETELY FLAT IN BED
[2022-01-22] MEDS ORDERED: LOSA-73 PO (17:30)
[2022-01-22] MEDS ORDERED: METO100T7 PO (17:30)
[2022-01-22] MEDS ORDERED: VERA240C2 PO (17:30)
[2022-01-22] MEDS ORDERED: HYDR12.58 PO (17:30)
[2022-01-22] MEDS ORDERED: SERT100T PO (17:30)
[2022-01-22] MEDS ORDERED: ATOR10TA60 PO (17:30)
[2022-01-23] VITALS (13 sets, daily range): BP systolic 120–165; BP diastolic 75–103
[2022-01-23 05:22] LABS: CALCIUM 8.3 mg/dL (8.5-10.1); CREATININE 0.8 mg/dL (0.6-1.0); GFR 71.3; POTASSIUM 3.1 mmol/L (3.5-5.1)
[2022-01-23 06:42] LABS: BASO % 0 % (0-3); EOS % 0 % (0-3); HEMATOCRIT 36.9 % (36.0-47.0); HEMOGLOBIN 12.2 g/dL (12.0-15.5); LYMPH # 1.1 x10^3/uL (1.0-4.8); LYMPH % 10 % (24-48); MEAN CORPUSCULAR HEMOGLOBIN 32 pg (25-35); MEAN CORPUSCULAR HGB CONC 33 g/dL (31-37); MEAN CORPUSCULAR VOLUME 96 fL (79-100); MONO # 0.8 x10^3/uL (0.0-1.1); MONO % 7 % (0-9); NEUT # 9.3 x10^3/uL (1.8-7.7); NEUT % 82 % (31-73); PLATELET COUNT 210 x10^3/uL (140-400); RED BLOOD COUNT 3.83 x10^6/uL (3.50-5.40); RED CELL DISTRIBUTION WIDTH 12.5 % (11.5-14.5); WHITE BLOOD COUNT 11.3 x10^3/uL (4.0-11.0)
[2022-01-23] MEDS ORDERED: POTASSIUM CHLORIDE 20 MEQ TABLET.ER. PO ONE (07:15)
[2022-01-23] MEDS: ASPIRIN ENTERIC COATED 81 MG TABLET.DR. PO SCH (08:40)
[2022-01-23] MEDS: AZITHROMYCIN 250 MG TABLET. PO SCH (08:41)
--- NOTE | 2022-01-23 09:41 | PDOC ---
PULMONARY PROGRESS NOTES DATE: 01/23/22 TIME: 09:41 Subjective Patient feels better compared to yesterday still somewhat short of breath no chest pain no pressure Vitals Vital Signs Date Time Temp Pulse Resp B/P (MAP) Pulse Ox O2 Delivery O2 Flow Rate FiO2 01/23/22 06:00 95 16 142/79 (100) 94 Nasal Cannula 2.0 01/23/22 04:00 97.8 97.8 ROS: No Nausea, No Chest Pain, No Abdominal Pain, No Increase Cough General: Alert Lungs: Crackles Cardiovascular: S1, S2 Abdomen: Soft Neuro Exam: Alert Extremities: No Edema Skin: Warm Labs Laboratory Tests Test 01/21/22 21:40 01/21/22 22:00 01/21/22 22:05 01/22/22 00:50 White Blood Count 16.9 x10^3/uL (4.0-11.0) Red Blood Count 5.06 x10^6/uL (3.50-5.40) Hemoglobin 16.3 g/dL (12.0-15.5) Hematocrit 49.9 % (36.0-47.0) Mean Corpuscular Volume 99 fL (79-100) Mean Corpuscular Hemoglobin 32 pg (25-35) Mean Corpuscular Hemoglobin Concent 33 g/dL (31-37) Red Cell Distribution Width 12.9 % (11.5-14.5) Platelet Count 345 x10^3/uL (140-400) Neutrophils (%) (Auto) 39 % (31-73) Lymphocytes (%) (Auto) 49 % (24-48) Monocytes (%) (Auto) 9 % (0-9) Eosinophils (%) (Auto) 2 % (0-3) Basophils (%) (Auto) 1 % (0-3) Neutrophils # (Auto) 6.7 x10^3/uL (1.8-7.7) Lymphocytes # (Auto) 8.3 x10^3/uL (1.0-4.8) Monocytes # (Auto) 1.5 x10^3/uL (0.0-1.1) Eosinophils # (Auto) 0.3 x10^3/uL (0.0-0.7) Basophils # (Auto) 0.1 x10^3/uL (0.0-0.2) Segmented Neutrophils % 39 % (35-66) Band Neutrophils % 1 % (0-9) Lymphocytes % 51 % (24-48) Atypical Lymphocytes % (Manual) 2 % (0-0) Monocytes % 5 % (0-10) Eosinophils % 2 % (0-5) Toxic Granulation Slight Platelet Estimate Adequate (ADEQUATE) Prothrombin Time 12.8 SEC (11.7-14.0) Prothromb Time International Ratio 1.0 (0.8-1.1) Activated Partial Thromboplast Time 23 SEC (24-38) D-Dimer (Iman) 1.90 ug/mlFEU (0.00-0.50) Sodium Level 137 mmol/L (136-145) Potassium Level 4.2 mmol/L (3.5-5.1) Chloride Level 98 mmol/L (98-107) Carbon Dioxide Level 22 mmol/L (21-32) Anion Gap 17 (6-14) Blood Urea Nitrogen 23 mg/dL (7-20) Creatinine 1.2 mg/dL (0.6-1.0) Estimated GFR (Cockcroft-Gault) 44.7 BUN/Creatinine Ratio 19 (6-20) Glucose Level 305 mg/dL (70-99) Lactic Acid Level 9.9 mmol/L (0.4-2.0) 2.6 mmol/L (0.4-2.0) Calcium Level 9.1 mg/dL (8.5-10.1) Total Bilirubin 0.2 mg/dL (0.2-1.0) Aspartate Amino Transf (AST/SGOT) 21 U/L (15-37) Alanine Aminotransferase (ALT/SGPT) 21 U/L (14-59) Alkaline Phosphatase 90 U/L (46-116) Troponin I High Sensitivity 51 ng/L (4-50) 1241 ng/L (4-50) PU-Uuo-D-Type Natriuretic Peptide 726 pg/mL (0-124) Total Protein 7.7 g/dL (6.4-8.2) Albumin 3.7 g/dL (3.4-5.0) Albumin/Globulin Ratio 0.9 (1.0-1.7) Procalcitonin < 0.10 ng/mL (0.00-0.10) Coronavirus (COVID-19)(PCR) Not detected (NOT DETECTD) Influenza Type A Antigen Negative (NEGATIVE) Influenza Type B Antigen Negative (NEGATIVE) SARS-CoV-2 Antigen (Rapid) Negative (NEGATIVE) O2 Saturation 96 % (92-99) Arterial Blood pH 7.35 (7.35-7.45) Arterial Blood pCO2 at Patient Temp 38 mmHg (35-46) Arterial Blood pO2 at Patient Temp 94 mmHg (65-108) Arterial Blood HCO3 20 mmol/L (21-28) Arterial Blood Base Excess -5 mmol/L (-3-3) Oxyhemoglobin 94.2 % Methemoglobin 0.5 % (0.0-1.9) Carbon Monoxide, Quantitative 1.8 % (0.0-1.9) FiO2 100% Test 01/22/22 03:50 01/22/22 08:15 01/22/22 10:46 01/23/22 04:10 Troponin I High Sensitivity 1314 ng/L (4-50) 1702 ng/L (4-50) Heparin Anti-Xa Act, Unfractionated 0.32 IU/mL (0.30-0.70) Triglycerides Level 48 mg/dL (0-150) Cholesterol Level 183 mg/dL (0-200) LDL Cholesterol, Calculated 66 mg/dL (0-100) VLDL Cholesterol, Calculated 10 mg/dL (0-40) Non-HDL Cholesterol Calculated 76 mg/dL (0-129) HDL Cholesterol 107 mg/dL (40-60) Cholesterol/HDL Ratio 1.7 Thyroid Stimulating Hormone (TSH) 0.442 uIU/mL (0.358-3.74) White Blood Count 11.3 x10^3/uL (4.0-11.0) Red Blood Count 3.83 x10^6/uL (3.50-5.40) Hemoglobin 12.2 g/dL (12.0-15.5) Hematocrit 36.9 % (36.0-47.0) Mean Corpuscular Volume 96 fL (79-100) Mean Corpuscular Hemoglobin 32 pg (25-35) Mean Corpuscular Hemoglobin Concent 33 g/dL (31-37) Red Cell Distribution Width 12.5 % (11.5-14.5) Platelet Count 210 x10^3/uL (140-400) Neutrophils (%) (Auto) 82 % (31-73) Lymphocytes (%) (Auto) 10 % (24-48) Monocytes (%) (Auto) 7 % (0-9) Eosinophils (%) (Auto) 0 % (0-3) Basophils (%) (Auto) 0 % (0-3) Neutrophils # (Auto) 9.3 x10^3/uL (1.8-7.7) Lymphocytes # (Auto) 1.1 x10^3/uL (1.0-4.8) Monocytes # (Auto) 0.8 x10^3/uL (0.0-1.1) Eosinophils # (Auto) 0.0 x10^3/uL (0.0-0.7) Basophils # (Auto) 0.0 x10^3/uL (0.0-0.2) Sodium Level 138 mmol/L (136-145) Potassium Level 3.1 mmol/L (3.5-5.1) Chloride Level 104 mmol/L (98-107) Carbon Dioxide Level 25 mmol/L (21-32) Anion Gap 9 (6-14) Blood Urea Nitrogen 15 mg/dL (7-20) Creatinine 0.8 mg/dL (0.6-1.0) Estimated GFR (Cockcroft-Gault) 71.3 Glucose Level 125 mg/dL (70-99) Calcium Level 8.3 mg/dL (8.5-10.1) Laboratory Tests Test 01/22/22 10:46 01/23/22 04:10 Troponin I High Sensitivity 1702 ng/L (4-50) Triglycerides Level 48 mg/dL (0-150) Cholesterol Level 183 mg/dL (0-200) LDL Cholesterol, Calculated 66 mg/dL (0-100) VLDL Cholesterol, Calculated 10 mg/dL (0-40) Non-HDL Cholesterol Calculated 76 mg/dL (0-129) HDL Cholesterol 107 mg/dL (40-60) Cholesterol/HDL Ratio 1.7 Thyroid Stimulating Hormone (TSH) 0.442 uIU/mL (0.358-3.74) White Blood Count 11.3 x10^3/uL (4.0-11.0) Red Blood Count 3.83 x10^6/uL (3.50-5.40) Hemoglobin 12.2 g/dL (12.0-15.5) Hematocrit 36.9 % (36.0-47.0) Mean Corpuscular Volume 96 fL (79-100) Mean Corpuscular Hemoglobin 32 pg (25-35) Mean Corpuscular Hemoglobin Concent 33 g/dL (31-37) Red Cell Distribution Width 12.5 % (11.5-14.5) Platelet Count 210 x10^3/uL (140-400) Neutrophils (%) (Auto) 82 % (31-73) Lymphocytes (%) (Auto) 10 % (24-48) Monocytes (%) (Auto) 7 % (0-9) Eosinophils (%) (Auto) 0 % (0-3) Basophils (%) (Auto) 0 % (0-3) Neutrophils # (Auto) 9.3 x10^3/uL (1.8-7.7) Lymphocytes # (Auto) 1.1 x10^3/uL (1.0-4.8) Monocytes # (Auto) 0.8 x10^3/uL (0.0-1.1) Eosinophils # (Auto) 0.0 x10^3/uL (0.0-0.7) Basophils # (Auto) 0.0 x10^3/uL (0.0-0.2) Sodium Level 138 mmol/L (136-145) Potassium Level 3.1 mmol/L (3.5-5.1) Chloride Level 104 mmol/L (98-107) Carbon Dioxide Level 25 mmol/L (21-32) Anion Gap 9 (6-14) Blood Urea Nitrogen 15 mg/dL (7-20) Creatinine 0.8 mg/dL (0.6-1.0) Estimated GFR (Cockcroft-Gault) 71.3 Glucose Level 125 mg/dL (70-99) Calcium Level 8.3 mg/dL (8.5-10.1) Medications Active Scripts Medications Dose Route/Sig Max Daily Dose Days Date Category Atorvastatin Calcium 10 Mg Tablet 10 Mg PO HS 01/22/22 Reported Zoloft (Sertraline Hcl) 100 Mg Tablet 1 Tab PO DAILY 01/22/22 Reported Impression . IMPRESSION: 1. Acute hypoxemic respiratory failure, multifactorial. 2. Acute pulmonary edema, suspect diastolic. 3. Non-ST segment elevation myocardial infarction. 4. Abnormal CT chest revealing some consolidation in the lower bases, possible concomitant pneumonia. 5. Acute exacerbation of chronic obstructive pulmonary disease. 6. Tobacco dependent. 7. Hypertension. 8. Hyperlipidemia. FINDINGS 1. Hemodynamics: Elevated left ventricular end-diastolic pressure of 25 mmHg consistent with acute systolic heart failure. No pullback gradient across the aortic valve. 2. Left ventriculography: Severe hypokinesis of the mid to distal myocardial segments and hyperdynamic basal segments, pattern consistent with Takotsubo's cardiomyopathy. The ejection fraction is estimated at 35%. No significant mitral regurgitation seen. 3. Coronary angiography: a. The left main coronary artery arose from the left sinus of Valsalva, gave rise to the left anterior descending and left circumflex arteries and did not show any significant stenosis. b. The left anterior descending artery did not show any significant stenosis. c. The left circumflex artery did not show any significant stenosis. d. The right coronary artery was a large and dominant vessel arising from the right sinus of Valsalva that did not show any significant stenosis. Conclusion 1. No significant coronary artery disease 2. Severe hypokinesis of the mid to distal myocardial segments and hyperdynamic basal segments, pattern consistent with Takotsubo's cardiomyopathy. The ejection fraction is estimated at 35%. Recommendations Optimization of medical therapy including beta-blockers and repeat 2D echo in 3 months. Plan . Updated 01/23 Optimize cardiac meds Repeat CT chest in 6 to 8 weeks Empiric antibiotics Discussed with family at the bedside Okay to transfer out of the intensive care unit Cardiac catheterization noted 01/22 PLAN: 1. Continue current support with oxygen supplementation. 2. Empiric antibiotics. 3. Follow Cardiology input. 4. IV Lasix. 5. Repeat CT chest in 6-8 weeks. 6. The patient is instructed on the importance of discontinued tobacco use. 7. I reviewed her sleep hygiene. Clinically, I do not think that the patient has obstructive sleep apnea. I do appreciate the privilege in sharing in the patient's care. SYMONE RANDLE MD Jan 23, 2022 09:41
[2022-01-23] MEDS: SPIRONOLACTONE 25 MG TABLET PO SCH (09:55)
[2022-01-23] MEDS: METOPROLOL SUCC 24HR ER 100 MG TAB.ER.24H. PO SCH (09:55)
[2022-01-23] MEDS: SACUBITRIL/VALSARTAN 24/26MG TABLET. PO SCH ×2 (09:55→21:46)
--- NOTE | 2022-01-23 09:59 | PDOC ---
JUAN MOYER PARK RANGER 01/23/22 0959: CARDIO Progress Notes Date and Time Date of Service 01/23/2022 Time of Evaluation 0935 Subjective Subjective: No Chest Pain, No shortness of breath, No Palpitations Vitals Vitals Vital Signs Date Time Temp Pulse Resp B/P (MAP) Pulse Ox O2 Delivery O2 Flow Rate FiO2 01/23/22 06:00 95 16 142/79 (100) 94 Nasal Cannula 2.0 01/23/22 04:00 97.8 97.8 Weight Weight [ ] Input and Output Intake and Output Intake and Output 01/23/22 07:00 Intake Total 750 ml Output Total 300 ml Balance 450 ml Intake Oral 750 ml Output Urine Total 300 ml # Voids 3 Laboratory Labs Laboratory Tests Test 01/22/22 10:46 01/23/22 04:10 Troponin I High Sensitivity 1702 ng/L (4-50) Triglycerides Level 48 mg/dL (0-150) Cholesterol Level 183 mg/dL (0-200) LDL Cholesterol, Calculated 66 mg/dL (0-100) VLDL Cholesterol, Calculated 10 mg/dL (0-40) Non-HDL Cholesterol Calculated 76 mg/dL (0-129) HDL Cholesterol 107 mg/dL (40-60) Cholesterol/HDL Ratio 1.7 Thyroid Stimulating Hormone (TSH) 0.442 uIU/mL (0.358-3.74) White Blood Count 11.3 x10^3/uL (4.0-11.0) Red Blood Count 3.83 x10^6/uL (3.50-5.40) Hemoglobin 12.2 g/dL (12.0-15.5) Hematocrit 36.9 % (36.0-47.0) Mean Corpuscular Volume 96 fL (79-100) Mean Corpuscular Hemoglobin 32 pg (25-35) Mean Corpuscular Hemoglobin Concent 33 g/dL (31-37) Red Cell Distribution Width 12.5 % (11.5-14.5) Platelet Count 210 x10^3/uL (140-400) Neutrophils (%) (Auto) 82 % (31-73) Lymphocytes (%) (Auto) 10 % (24-48) Monocytes (%) (Auto) 7 % (0-9) Eosinophils (%) (Auto) 0 % (0-3) Basophils (%) (Auto) 0 % (0-3) Neutrophils # (Auto) 9.3 x10^3/uL (1.8-7.7) Lymphocytes # (Auto) 1.1 x10^3/uL (1.0-4.8) Monocytes # (Auto) 0.8 x10^3/uL (0.0-1.1) Eosinophils # (Auto) 0.0 x10^3/uL (0.0-0.7) Basophils # (Auto) 0.0 x10^3/uL (0.0-0.2) Sodium Level 138 mmol/L (136-145) Potassium Level 3.1 mmol/L (3.5-5.1) Chloride Level 104 mmol/L (98-107) Carbon Dioxide Level 25 mmol/L (21-32) Anion Gap 9 (6-14) Blood Urea Nitrogen 15 mg/dL (7-20) Creatinine 0.8 mg/dL (0.6-1.0) Estimated GFR (Cockcroft-Gault) 71.3 Glucose Level 125 mg/dL (70-99) Calcium Level 8.3 mg/dL (8.5-10.1) Microbiology Micro Microbiology 01/21/22 Blood Culture - Preliminary, Resulted NO GROWTH AFTER 1 DAY Physical Exam HEENT: Neck Supple W Full Motion Chest: Symmetric LUNGS: Other (diminished bases) Heart: RRR (ST) Abdomen: Soft N/T Extremities: No Edema, No Calf Tenderness Neurology: alert, oriented, follow commands Assessment Assessment 1. NSTEMI: LHC revealed no significant CAD but compatible with takotsubo with EF at 35% 2. HTN: labile 3. HLP: on home statin 4. AECOPD with continued tobacco use: per pulmonary 5. Lactic acidosis 6. Leukocytosis 7. Acute CHF HFrEF 8. NICM 9. Anxiety: per PCP Recommendations 1. TTE pending 2. No statin needed. Start on entresto, aldactone, toprol. DC home verapamil and losartan 3. Lasix PRN. Replace K 4. HF optimization Justicifation of Admission Dx: Justifications for Admission: Justification of Admission Dx: Yes AURORA GONZALEZ MD 01/23/22 2200: CARDIO Progress Notes Assessment Assessment Patient seen and examined. Agree with LENS BLANK GAUGER's assessment and plan Cardiac cath did not show any significant CAD - LV consistent with Takotsubo's cardiomyopathy Continue current meds including BB and repeat echo in 3 months JUAN MOYER APRN Jan 23, 2022 09:59 AURORA GONZALEZ MD Jan 23, 2022 22:00
[2022-01-23] MEDS: diazePAM 5 MG TABLET PO PRN ×2 (10:13→21:46)
[2022-01-23] MEDS ORDERED: METOPROLOL IV PUSH 5 MG/5 ML VIAL. IVP ONE (10:15)
--- NOTE | 2022-01-23 12:24 | PDOC ---
[facility] PROGRESS NOTE Date of Service DOS: DATE: 01/23/22 TIME: 12:23 Chief Complaint Chief Complaint Acute on chronic systolic and diastolic heart failure Toktosubo syndrome COPD, continued tobacco abuse, hypertension, hyperlipidemia, GERD, osteoarthritis, UTI. History of Present Illness History of Present Illness 01/23/2022 Patient seen and examined Discussed with RN Chart reviewed We have started her on Entresto metoprolol and Aldactone per cardiology She states she needs a little Valium for anxiety Vitals/I&O Vitals/I&O: Vital Signs Date Time Temp Pulse Resp B/P (MAP) Pulse Ox O2 Delivery O2 Flow Rate FiO2 01/23/22 10:13 165 165/103 01/23/22 06:00 16 94 Nasal Cannula 2.0 01/23/22 04:00 97.8 97.8 I & O 01/22/22 01/22/22 01/23/22 15:00 23:00 07:00 Intake Total 500 ml 250 ml Output Total 300 ml Balance -300 ml 500 ml 250 ml Physical Exam General: Alert, Oriented X3, Cooperative, No acute distress Heart: Regular rate (ST), Normal S1, Normal S2, Other (2/6 systolic murmur to LLS border) Abdomen: Soft, No tenderness Extremities: No cyanosis, No edema Skin: No breakdown, No significant lesion Labs Labs: Laboratory Tests Test 01/23/22 04:10 White Blood Count 11.3 x10^3/uL (4.0-11.0) Red Blood Count 3.83 x10^6/uL (3.50-5.40) Hemoglobin 12.2 g/dL (12.0-15.5) Hematocrit 36.9 % (36.0-47.0) Mean Corpuscular Volume 96 fL (79-100) Mean Corpuscular Hemoglobin 32 pg (25-35) Mean Corpuscular Hemoglobin Concent 33 g/dL (31-37) Red Cell Distribution Width 12.5 % (11.5-14.5) Platelet Count 210 x10^3/uL (140-400) Neutrophils (%) (Auto) 82 % (31-73) Lymphocytes (%) (Auto) 10 % (24-48) Monocytes (%) (Auto) 7 % (0-9) Eosinophils (%) (Auto) 0 % (0-3) Basophils (%) (Auto) 0 % (0-3) Neutrophils # (Auto) 9.3 x10^3/uL (1.8-7.7) Lymphocytes # (Auto) 1.1 x10^3/uL (1.0-4.8) Monocytes # (Auto) 0.8 x10^3/uL (0.0-1.1) Eosinophils # (Auto) 0.0 x10^3/uL (0.0-0.7) Basophils # (Auto) 0.0 x10^3/uL (0.0-0.2) Sodium Level 138 mmol/L (136-145) Potassium Level 3.1 mmol/L (3.5-5.1) Chloride Level 104 mmol/L (98-107) Carbon Dioxide Level 25 mmol/L (21-32) Anion Gap 9 (6-14) Blood Urea Nitrogen 15 mg/dL (7-20) Creatinine 0.8 mg/dL (0.6-1.0) Estimated GFR (Cockcroft-Gault) 71.3 Glucose Level 125 mg/dL (70-99) Calcium Level 8.3 mg/dL (8.5-10.1) Assessment and Plan Assessmemt and Plan Problems Medical Problems: (1) Acute exacerbation of CHF (congestive heart failure) Status: Acute (2) Acute hypoxemic respiratory failure Status: Acute (3) COPD with acute exacerbation Status: Ac Acute on chronic systolic and diastolic heart failure Toktosubo syndrome COPD, continued tobacco abuse, hypertension, hyperlipidemia, GERD, osteoarthritis, UTI. Plan Entresto metoprolol and Aldactone per cardiology We added in as needed Valium ICU monitoring DVT prophylaxis Full code Home meds Encourage p.o. intake Appreciate subspecialist input Per cardiology recommendations please see the following and we certainly agree and appreciate their input; Assessment 1. NSTEMI: LHC revealed no significant CAD but compatible with takotsubo with EF at 35% 2. HTN: labile 3. HLP: on home statin 4. AECOPD with continued tobacco use: per pulmonary 5. Lactic acidosis 6. Leukocytosis 7. Acute CHF HFrEF 8. NICM 9. Anxiety: per PCP Recommendations 1. TTE pending 2. No statin needed. Start on entresto, aldactone, toprol. DC home verapamil and losartan 3. Lasix PRN. Replace K 4. HF optimization Comment Review of Relevant I have reviewed the following items antwan (where applicable) has been applied. Medications: Current Medications Medications (Trade) Dose Ordered Sig/Terence Route PRN Reason Start Time Stop Time Status Last Admin Dose Admin Azithromycin (Zithromax) 250 mg DAILY PO 01/23/22 09:00 01/23/22 08:41 Aspirin (Ecotrin) 81 mg DAILYWBKFT PO 01/23/22 08:00 01/23/22 08:40 Nitroglycerin (Nitroglycerin) 200 mcg 1X ONCE IART 01/22/22 15:45 01/22/22 15:46 DC 01/22/22 15:45 Verapamil HCl (Verapamil) 2.5 mg 1X ONCE IART 01/22/22 15:45 01/22/22 15:46 DC 01/22/22 15:45 Heparin Sodium (Porcine) (Heparin Sodium) 2,500 unit 1X ONCE IART 01/22/22 15:45 01/22/22 15:46 DC 01/22/22 15:45 Heparin Sodium/ Sodium Chloride (HEPARIN for ARTERIAL LINE FLUSH) 1,000 unit 1X ONCE IART 01/22/22 15:45 01/22/22 15:46 DC 01/22/22 15:45 Midazolam HCl (Versed) 2 mg 1X ONCE IV 01/22/22 15:45 01/22/22 15:46 DC 01/22/22 15:34 Fentanyl Citrate (Fentanyl 2ml Vial) 100 mcg 1X ONCE IV 01/22/22 15:45 01/22/22 15:46 DC 01/22/22 15:34 Iodixanol (Visipaque 320) 100 ml 1X ONCE IART 01/22/22 15:45 01/22/22 15:46 DC 01/22/22 15:45 Lidocaine HCl (Xylocaine-Mpf 1% 2ml Vial) 2 ml 1X ONCE INJ 01/22/22 15:45 01/22/22 15:46 DC 01/22/22 15:45 Potassium Chloride (Klor-Con) 40 meq 1X ONCE PO 01/23/22 07:15 01/23/22 07:16 DC 01/23/22 08:41 Sacubitril/ Valsartan (Entresto 24 Mg-26 Mg) 1 tab BID PO 01/23/22 10:00 01/23/22 09:55 Spironolactone (Aldactone) 50 mg DAILY PO 01/23/22 10:00 01/23/22 09:55 Metoprolol Succinate (Toprol Xl) 100 mg DAILY PO 01/23/22 10:00 01/23/22 09:55 Diazepam (Valium) 5 mg PRN Q8HRS PRN PO ANXIETY 01/23/22 10:15 01/23/22 10:13 Metoprolol Tartrate (Lopressor Vial) 5 mg 1X ONCE IVP 01/23/22 10:15 01/23/22 10:16 DC 01/23/22 10:13 Justifications for Admission Other Justification LISSET STANLEY III DO Jan 23, 2022 12:24
--- NOTE | 2022-01-23 14:42 | NUR ---
pt anxious about blood pressure this morning and not having had her home medications for two days. informed her that d/t her diagnosis the director of recreation therapy would likely change her home meds and so this RN would page them to discuss what to restart. hyperbaric technologist to pt bedside, came out to let RN know that pt was crying and anxious. RN went in to speak with pt, she stated that she was concerned with her medication situation, back pain from the bed and constipation, REVENUE INTEGRITY ANALYST on unit at this time and was discussing what medications to switch her to, informed pt this RN would be in with meds shortly. medications were administered per order and pt asked to go to the restroom, stated she was anxious and wanted to go home because she didn't have a bathroom with a door and she didn't think she could go without privacy. this rn helped her to toilet, closed curtain around toilet, curtain on door and closed doors. pt was able to go to the bathroom, however while she was up she became very tachycardic in the 180s and SOB, pt began to have a panic attack, this rn administered valium and lopressor iv per order and assisted pt with vageal manuevers and slow breathing. pt eventually calmed down and HR dropped to 105. Pt then rested comfortably in bed. pt was downgraded to cvc status, transferred with all belongings to room 663
[2022-01-23] MEDS: LACTOBACILLUS RHAMNOSUS GG 1 CAPSULE. PO SCH (21:46)
[2022-01-24 03:00] VITALS: BP 159/60
[2022-01-24] MEDS: LACTOBACILLUS RHAMNOSUS GG 1 CAPSULE. PO SCH (08:01)
[2022-01-24] MEDS: ASPIRIN ENTERIC COATED 81 MG TABLET.DR. PO SCH (08:01)
[2022-01-24] MEDS: METOPROLOL SUCC 24HR ER 100 MG TAB.ER.24H. PO SCH (08:02)
[2022-01-24] MEDS: AZITHROMYCIN 250 MG TABLET. PO SCH (08:02)
[2022-01-24] MEDS: SACUBITRIL/VALSARTAN 24/26MG TABLET. PO SCH (08:03)
[2022-01-24] MEDS: SPIRONOLACTONE 25 MG TABLET PO SCH (08:04)
--- NOTE | 2022-01-24 08:20 | PDOC ---
PULMONARY PROGRESS NOTES DATE: 01/24/22 TIME: 08:20 Subjective No overnight events Patient feels better compared to yesterday still somewhat short of breath no chest pain no pressure Vitals Vital Signs Date Time Temp Pulse Resp B/P (MAP) Pulse Ox O2 Delivery O2 Flow Rate FiO2 01/24/22 08:03 110 132/78 01/24/22 03:00 98.2 22 99 Nasal Cannula 2.0 98.2 ROS: No Nausea, No Chest Pain, No Abdominal Pain, No Increase Cough General: Alert Lungs: Crackles Cardiovascular: S1, S2 Abdomen: Soft Neuro Exam: Alert Extremities: No Edema Skin: Warm Labs Laboratory Tests Test 01/22/22 10:46 01/23/22 04:10 Troponin I High Sensitivity 1702 ng/L (4-50) Triglycerides Level 48 mg/dL (0-150) Cholesterol Level 183 mg/dL (0-200) LDL Cholesterol, Calculated 66 mg/dL (0-100) VLDL Cholesterol, Calculated 10 mg/dL (0-40) Non-HDL Cholesterol Calculated 76 mg/dL (0-129) HDL Cholesterol 107 mg/dL (40-60) Cholesterol/HDL Ratio 1.7 Thyroid Stimulating Hormone (TSH) 0.442 uIU/mL (0.358-3.74) White Blood Count 11.3 x10^3/uL (4.0-11.0) Red Blood Count 3.83 x10^6/uL (3.50-5.40) Hemoglobin 12.2 g/dL (12.0-15.5) Hematocrit 36.9 % (36.0-47.0) Mean Corpuscular Volume 96 fL (79-100) Mean Corpuscular Hemoglobin 32 pg (25-35) Mean Corpuscular Hemoglobin Concent 33 g/dL (31-37) Red Cell Distribution Width 12.5 % (11.5-14.5) Platelet Count 210 x10^3/uL (140-400) Neutrophils (%) (Auto) 82 % (31-73) Lymphocytes (%) (Auto) 10 % (24-48) Monocytes (%) (Auto) 7 % (0-9) Eosinophils (%) (Auto) 0 % (0-3) Basophils (%) (Auto) 0 % (0-3) Neutrophils # (Auto) 9.3 x10^3/uL (1.8-7.7) Lymphocytes # (Auto) 1.1 x10^3/uL (1.0-4.8) Monocytes # (Auto) 0.8 x10^3/uL (0.0-1.1) Eosinophils # (Auto) 0.0 x10^3/uL (0.0-0.7) Basophils # (Auto) 0.0 x10^3/uL (0.0-0.2) Sodium Level 138 mmol/L (136-145) Potassium Level 3.1 mmol/L (3.5-5.1) Chloride Level 104 mmol/L (98-107) Carbon Dioxide Level 25 mmol/L (21-32) Anion Gap 9 (6-14) Blood Urea Nitrogen 15 mg/dL (7-20) Creatinine 0.8 mg/dL (0.6-1.0) Estimated GFR (Cockcroft-Gault) 71.3 Glucose Level 125 mg/dL (70-99) Calcium Level 8.3 mg/dL (8.5-10.1) Medications Active Scripts Medications Dose Route/Sig Max Daily Dose Days Date Category Atorvastatin Calcium 10 Mg Tablet 10 Mg PO HS 01/22/22 Reported Zoloft (Sertraline Hcl) 100 Mg Tablet 1 Tab PO DAILY 01/22/22 Reported Impression . IMPRESSION: 1. Acute hypoxemic respiratory failure, multifactorial. 2. Acute pulmonary edema, suspect diastolic. 3. Non-ST segment elevation myocardial infarction. 4. Abnormal CT chest revealing some consolidation in the lower bases, possible concomitant pneumonia. 5. Acute exacerbation of chronic obstructive pulmonary disease. 6. Tobacco dependent. 7. Hypertension. 8. Hyperlipidemia. FINDINGS 1. Hemodynamics: Elevated left ventricular end-diastolic pressure of 25 mmHg consistent with acute systolic heart failure. No pullback gradient across the aortic valve. 2. Left ventriculography: Severe hypokinesis of the mid to distal myocardial segments and hyperdynamic basal segments, pattern consistent with Takotsubo's cardiomyopathy. The ejection fraction is estimated at 35%. No significant mitral regurgitation seen. 3. Coronary angiography: a. The left main coronary artery arose from the left sinus of Valsalva, gave rise to the left anterior descending and left circumflex arteries and did not show any significant stenosis. b. The left anterior descending artery did not show any significant stenosis. c. The left circumflex artery did not show any significant stenosis. d. The right coronary artery was a large and dominant vessel arising from the right sinus of Valsalva that did not show any significant stenosis. Conclusion 1. No significant coronary artery disease 2. Severe hypokinesis of the mid to distal myocardial segments and hyperdynamic basal segments, pattern consistent with Takotsubo's cardiomyopathy. The ejection fraction is estimated at 35%. Recommendations Optimization of medical therapy including beta-blockers and repeat 2D echo in 3 months. Plan . Updated 01/24 Does not require oxygen with exertion Discharge home today Follow-up in the office in 2 months with a repeat CT chest Updated 01/23 Optimize cardiac meds Repeat CT chest in 6 to 8 weeks Empiric antibiotics Discussed with family at the bedside Okay to transfer out of the intensive care unit Cardiac catheterization noted SYMONE RANDLE MD Jan 24, 2022 08:20
--- NOTE | 2022-01-24 08:21 | CARD ---
MR#: [id number] Date of Study: 01/23/2022 Ordering Physician: JUAN MOYER, Referring Physician: JUAN MOYER Tech: Neymar Howard [facility] APPROVED REPORT EXAM: Two-dimensional and M-mode echocardiogram with Doppler and color Doppler. Other Information Quality : AverageHR: 111bpm Rhythm : Tachycardia INDICATION Congestive Heart Failure RISK FACTORS Hypertension Hyperlipidemia Smoking COPD 2D DIMENSIONS Left Atrium(2D)3.9 (1.6-4.0cm)IVSd1.0 (0.7-1.1cm) Aortic Root(2D)2.9 (2.0-3.7cm)LVDd4.7 (3.9-5.9cm) LVOT Diameter1.8 (1.8-2.4cm)PWd1.1 (0.7-1.1cm) LA Nkcpuv00 (18-58mL)LVDs2.8 (2.5-4.0cm) FS (%) 41.4 %SV75.2 ml LVEF(%)72.3 (>50%) Aortic Valve AoV Peak Woo.136.6cm/sAoV VTI21.0cm AO Peak GR.7.5mmHgLVOT Peak Woo.80.5cm/s AO Mean GR.4mmHgAVA (VMAX)1.58cm2 AI P 1/2 [id number] Mitral Valve MV E Peak Gr.16mmHgMV E Mean Gr.4mmHg Pulmonary Valve PV Peak Dsnerqky39.2cm/s Tricuspid Valve TR P. Fxyhyzng774wg/sTR Peak Gr.42mmHg Pulmonary Vein S1 Atxijhlo66.1cm/sD2 Roajryno73.2cm/s LEFT VENTRICLE The left ventricle is normal size. There is normal left ventricular wall thickness. Severe hypokinesi s of mid to distal myocardial segments, pattern consistent with Takotsubo's cardiomyopathy. The eject ion fraction is estimated at 30 to 35%. Diastolic function not assessed due to tachycardia. No left v entricle thrombus noted on this study. There is no ventricular septal defect visualized. There is no left ventricular aneurysm. There is no mass noted in the left ventricle. RIGHT VENTRICLE The right ventricle is normal size. There is normal right ventricular wall thickness. The right ventr icular systolic function is normal. ATRIA The left atrium is borderline dilated. The right atrium size is normal. The interatrial septum is int act with no evidence for an atrial septal defect or patent foramen ovale as noted on 2-D or Doppler i maging. AORTIC VALVE The aortic valve is mildly sclerotic. Doppler and Color Flow revealed mild aortic regurgitation. Ther e is no significant aortic valvular stenosis. There is no aortic valvular vegetation. MITRAL VALVE The mitral valve is thickened but opens well. There is no evidence of mitral valve prolapse. There is no mitral valve stenosis. Doppler and Color-flow revealed trace mitral regurgitation. TRICUSPID VALVE The tricuspid valve is normal in structure and function. Doppler and Color Flow revealed trace tricus pid regurgitation. The PA pressure was estimated at 55 mmHg. There is no tricuspid valve prolapse or vegetation. There is no tricuspid valve stenosis. PULMONIC VALVE The pulmonary valve is normal in structure and function. Doppler and Color Flow revealed no pulmonic valvular regurgitation. There is no pulmonic valvular stenosis. GREAT VESSELS The aortic root is normal in size. The ascending aorta is normal in size. The pulmonary artery is nor mal. The IVC is dilated with blunted inspiratory response. PERICARDIAL EFFUSION There is no pleural effusion. There is no evidence of significant pericardial effusion. Critical Notification Critical Value: No <Conclusion> Severe hypokinesis of mid to distal myocardial segments, pattern consistent with Takotsubo's cardiomy opathy. The ejection fraction is estimated at 30 to 35%. Mild aortic regurgitation. Trace mitral regurgitation. Trace tricuspid regurgitation. The PA pressure was estimated at 55 mmHg. There is no evidence of significant pericardial effusion. Signed by : Claudio Rodriguez, Electronically Approved : 01/24/2022 08:21:14
[2022-01-24 08:37] VITALS: BP 132/78
[2022-01-24 11:00] VITALS: BP 135/91
[2022-01-24] MEDS ORDERED: METO-247 PO ×2 (11:03→18:38)
[2022-01-24] MEDS ORDERED: SACU1TAB PO (11:03)
[2022-01-24] MEDS ORDERED: SPIR25TA PO (11:03)
[2022-01-24] MEDS ORDERED: ASPI-886 PO (11:03)
--- NOTE | 2022-01-24 12:14 | PDOC ---
JUAN MOYER CLINICAL SERVICES SPECIALIST 01/24/22 1214: CARDIO Progress Notes Date and Time Date of Service 01/24/2022 Time of Evaluation 1150 Subjective Subjective: No Chest Pain, No shortness of breath, No Palpitations Vitals Vitals Vital Signs Date Time Temp Pulse Resp B/P (MAP) Pulse Ox O2 Delivery O2 Flow Rate FiO2 01/24/22 11:00 99 18 135/91 (106) 99 Room Air 01/24/22 08:37 98.2 2.0 98.2 Weight Weight [ ] Input and Output Intake and Output Intake and Output 01/24/22 07:00 Intake Total 300 ml Balance 300 ml Intake Oral 300 ml # Voids 4 # Bowel Movements 1 Microbiology Micro Microbiology 01/21/22 Blood Culture - Preliminary, Resulted NO GROWTH AFTER 2 DAYS Physical Exam HEENT: Neck Supple W Full Motion Chest: Symmetric LUNGS: Other (diminished bases) Heart: RRR (ST) Abdomen: Soft N/T Extremities: No Edema, No Calf Tenderness Neurology: alert, oriented, follow commands Assessment Assessment 1. NSTEMI: LHC revealed no significant CAD but compatible with takotsubo with EF at 35% 2. HTN: better 3. HLP: on home statin 4. AECOPD with continued tobacco use: per pulmonary 5. Lactic acidosis 6. Leukocytosis 7. Acute CHF HFrEF 8. NICM 9. Anxiety: per PCP 10. Arrhythmia: repeat EKG revealed sinus tachycardia Recommendations 1. No statin needed. Start on entresto, aldactone, increase toprol. DC home verapamil and losartan 2. Lasix PRN. Replace K as warrnated 3. HF optimization 4. MCOT Justicifation of Admission Dx: Justifications for Admission: Justification of Admission Dx: Yes AURORA GONZALEZ MD 01/24/22 2244: CARDIO Progress Notes Assessment Assessment 1. NSTEMI: LHC revealed no significant CAD but compatible with takotsubo with EF at 35% 2. HTN: labile 3. HLP: on home statin 4. AECOPD with continued tobacco use: per pulmonary 5. Lactic acidosis 6. Leukocytosis 7. Acute CHF HFrEF 8. NICM 9. Anxiety: per PCP Recommendations 1. T2D echo showed normnal LVF 2. No statin needed. Start on entresto, aldactone, toprol. DC home verapamil and losartan 3. Lasix PRN. Replace K 4. HF optimization JUAN MOYER CLINICAL SERVICES SPECIALIST Jan 24, 2022 12:14 AURORA GONZALEZ MD Jan 24, 2022 22:44
--- NOTE | 2022-01-24 12:42 | EKG ---
[facility] [address] [place] [address] Test Date: 2022-01-24 Test Time: 12:35:03 Pat Name: ARACELI GRAJEDA Department: Room: [facility] Gender: F [employer] Machine Operator: FERMIN : 1955 Requested By: JUAN MOYER Order Number: [id number] Reading MD: Claudio Rodriguez Measurements Intervals [place] Rate: 101 P: 38 MS: 160 QRS: 28 QRSD: 74 T: 172 QT: 390 QTc: 506 Interpretive Statements SINUS TACHYCARDIA T ABNORMALITY IN ANTERIOR LEADS LATERAL LEADS INFEROLATERAL LEADS ABNORMAL ECG Electronically Signed On 01-31-2022 14:15:53 CDT by Claudio Rodriguez
[2022-01-24 13:14] LABS: CALCIUM 8.8 mg/dL (8.5-10.1); CREATININE 0.8 mg/dL (0.6-1.0); GFR 71.3; MAGNESIUM 1.8 mg/dL (1.8-2.4); POTASSIUM 3.5 mmol/L (3.5-5.1)
[2022-01-24] MEDS ORDERED: METOPROLOL SUCC 24HR ER 25 MG TAB.ER.24H. PO ONE (14:15)
[2022-01-24] MEDS ORDERED: AZIT250T6 PO (14:49)
--- NOTE | 2022-01-24 14:56 | PDOC3 ---
Discharge Summary Visit Information Date of Admission: Jan 21, 2022 Date of Discharge: Jan 24, 2022 Final Diagnosis Acute systolic heart failure, EF at 35% Acute stress mediated dilated cardiomyopathy, Takotsubo cardiomyopathy syndrome NSTEMI 2, demand, cardiac cath showed no CAD COPD, continued tobacco abuse, hypertension, hyperlipidemia, GERD, osteoarthritis, UTI. acute hypoxia hypokalemia htn, lipids, anxiety disorder, Problems Medical Problems: (1) Acute exacerbation of CHF (congestive heart failure) Status: Acute (2) Acute hypoxemic respiratory failure Status: Acute (3) COPD with acute exacerbation Status: Acute Brief Hospital Course Allergies Allergies Coded Allergies Type Severity Reaction Last Updated Verified No Known Allergies Allergy Unknown 01/21/22 Yes Vital Signs Vital Signs Date Time Temp Pulse Resp B/P (MAP) Pulse Ox O2 Delivery O2 Flow Rate FiO2 01/24/22 14:21 97 130/88 01/24/22 11:00 18 99 Room Air 01/24/22 08:37 98.2 2.0 98.2 Lab Results Laboratory Tests Test 01/23/22 04:10 01/24/22 12:25 White Blood Count 11.3 x10^3/uL (4.0-11.0) Red Blood Count 3.83 x10^6/uL (3.50-5.40) Hemoglobin 12.2 g/dL (12.0-15.5) Hematocrit 36.9 % (36.0-47.0) Mean Corpuscular Volume 96 fL (79-100) Mean Corpuscular Hemoglobin 32 pg (25-35) Mean Corpuscular Hemoglobin Concent 33 g/dL (31-37) Red Cell Distribution Width 12.5 % (11.5-14.5) Platelet Count 210 x10^3/uL (140-400) Neutrophils (%) (Auto) 82 % (31-73) Lymphocytes (%) (Auto) 10 % (24-48) Monocytes (%) (Auto) 7 % (0-9) Eosinophils (%) (Auto) 0 % (0-3) Basophils (%) (Auto) 0 % (0-3) Neutrophils # (Auto) 9.3 x10^3/uL (1.8-7.7) Lymphocytes # (Auto) 1.1 x10^3/uL (1.0-4.8) Monocytes # (Auto) 0.8 x10^3/uL (0.0-1.1) Eosinophils # (Auto) 0.0 x10^3/uL (0.0-0.7) Basophils # (Auto) 0.0 x10^3/uL (0.0-0.2) Sodium Level 138 mmol/L (136-145) 135 mmol/L (136-145) Potassium Level 3.1 mmol/L (3.5-5.1) 3.5 mmol/L (3.5-5.1) Chloride Level 104 mmol/L (98-107) 100 mmol/L (98-107) Carbon Dioxide Level 25 mmol/L (21-32) 27 mmol/L (21-32) Anion Gap 9 (6-14) 8 (6-14) Blood Urea Nitrogen 15 mg/dL (7-20) 11 mg/dL (7-20) Creatinine 0.8 mg/dL (0.6-1.0) 0.8 mg/dL (0.6-1.0) Estimated GFR (Cockcroft-Gault) 71.3 71.3 Glucose Level 125 mg/dL (70-99) 122 mg/dL (70-99) Calcium Level 8.3 mg/dL (8.5-10.1) 8.8 mg/dL (8.5-10.1) Magnesium Level 1.8 mg/dL (1.8-2.4) Laboratory Tests Test 01/24/22 12:25 Sodium Level 135 mmol/L (136-145) Potassium Level 3.5 mmol/L (3.5-5.1) Chloride Level 100 mmol/L (98-107) Carbon Dioxide Level 27 mmol/L (21-32) Anion Gap 8 (6-14) Blood Urea Nitrogen 11 mg/dL (7-20) Creatinine 0.8 mg/dL (0.6-1.0) Estimated GFR (Cockcroft-Gault) 71.3 Glucose Level 122 mg/dL (70-99) Calcium Level 8.8 mg/dL (8.5-10.1) Magnesium Level 1.8 mg/dL (1.8-2.4) Brief Hospital Course Ms. Alexander is a 66 old admit with sudden, acute onset of shortness of breath with exertion, not associated with chest pain or pressure. EMS showed Sa02 near 80, admit to ER in extremus CXR showed acute pulmonary edema. She was initially placed on noninvasive ventilation, started on Solu-Medrol, given empiric antibiotics and some IV Lasix, was transferred to the intensive care unit. Cardiac cath on 01/22 acute dilated cardiomyopathy, then echo med optimize, CHF treatment, lytes replaced smoking cessation discussed Discharge Information Condition at Discharge: Improved Follow Up: Weeks Disposition/Orders: D/C to Home Scheduled Aspirin (Aspirin Ec) 81 Mg Tablet.dr, 81 MG PO DAILYWBKFT for cardiac, #30 Ref 1 Prescribed by: ATNHONY SUNG on 01/24/22 1103 Atorvastatin Calcium (Atorvastatin Calcium) 10 Mg Tablet, 10 MG PO HS for FOR CHOLESTEROL, #30 Ref 0 (Reported) Entered as Reported by: ROSEY SPAULDING on 01/22/221729 Last Action: New Order on 01/22/221729 by ROSEY SPAULDING Azithromycin (Azithromycin Tablet) 250 Mg Tablet, 250 MG PO DAILY for leukocytosis, NOS, #4 Prescribed by: ANTHONY SUNG on 01/24/22 1449 Metoprolol Succinate (Metoprolol Succinate ( Xl )) 100 Mg Tab.er.24h, 100 MG PO DAILY for CHF, #30 Prescribed by: ANTHONY SUNG on 01/24/22 1103 Sacubitril/Valsartan (Entresto 24 mg-26 mg Tablet) 1 Each Tablet, 1 TAB PO BID for CHF, #60 Ref 1 Prescribed by: ANTHONY SUNG on 01/24/22 1103 Sertraline Hcl (Zoloft) 100 Mg Tablet, 1 TAB PO DAILY for depression, #30 Ref 5 (Reported) Entered as Reported by: ROSEY SPAULDING on 01/22/221729 Last Action: New Order on 01/22/221729 by ROSEY SPAULDING Spironolactone (Aldactone) 25 Mg Tablet, 50 MG PO DAILY for CHF for 30 Days, #60 Prescribed by: NATHONY SUNG on 01/24/22 110 Discontinued Medications Hydrochlorothiazide (Hydrochlorothiazide Tablet) 12.5 Mg Tablet, 12.5 MG PO DAILY for DIURETIC, Ref 0 (Reported) Entered as Reported by: ROSEY SPAULDING on 01/22/221729 Last Action: Discontinued on 01/23/22914 by ELIAS TOLBERT Losartan Potassium (Losartan Potassium) 50 Mg Tablet, 50 MG PO DAILY for HYPERTENSION, (Reported) Entered as Reported by: ROSEY SPAULDING on 01/22/221729 Last Action: Discontinued on 01/23/22914 by ELIAS TOLBERT Metoprolol Tartrate (Metoprolol Tartrate) 100 Mg Tablet, 1 TAB PO BID for CAD, #60 Ref 5 (Reported) Entered as Reported by: ROSEY SPAULDING on 01/22/221729 Last Action: Discontinued on 01/23/22917 by ELIAS TOLBERT Verapamil Hcl (Verapamil Er) 240 Mg Cap24h.pel, 1 CAP PO DAILY for , #30 Ref 5 (Reported) Entered as Reported by: ROSEY SPAULDING on 01/22/221729 Last Action: Discontinued on 01/23/22914 by ELIAS TOLBERT Patient Instructions Patient Instructions face to face x2 labs today, reviewd 42 min total Justicifation of Admission Dx: Justifications for Admission: Justification of Admission Dx: Yes ANTHONY SUNG MD Jan 24, 2022 14:56
[2022-01-24] MEDS ORDERED: POTASSIUM CHLORIDE 20 MEQ TABLET.ER. PO ONE (15:00)
[2022-01-24 15:45] VITALS: BP 155/103
--- NOTE | 2022-01-24 16:29 | NUR ---
SS following for discharge planning. SS reviewed pt chart and discussed with pt RN. Pt is currently on room air. Cardiology and Pulmonology following. Pt had heart cath on 01/22/2022. PT/OT recommended home. Discharge order on the chart for home with self care.
--- NOTE | 2022-01-24 17:00 | NUR ---
Discharge Note: ARACELI GRAJEDA [address] [place] [address] Discharge instructions and discharge home medications reviewed with Patient and a copy given. All questions have been answered and understanding verbalized. The following instructions and handouts were given: discharge instructions, med list, CHF & other education, follow ups. Discontinued lines and drains: Peripheral IV intact. Patient discharged to Home or Self Care with Family Member via Wheelchair at 1700. jaki Castorena RN helped with patient discharge.
== END 2022-01-24 17:00 | disposition home or self-care (01) | DRG 280 ==
LOC: ER 21:33 → 1 WEST ICU 22:35 → 6 SOUTH 01-23 13:34
PROVIDERS: ADMIT Internal Medicine; ATTEND Internal Medicine
PROC: 5A09357 Assistance with Respiratory Ventilation, Less than 24 Consecutive Hours, Continuous Positive Airway Pressure (ICD-10-PCS; 2022-01-21)
PROC: B2111ZZ Fluoroscopy of Multiple Coronary Arteries using Low Osmolar Contrast (ICD-10-PCS; principal; 2022-01-22)
PROC: B2151ZZ Fluoroscopy of Left Heart using Low Osmolar Contrast (ICD-10-PCS; 2022-01-22)
PROC: 4A023N7 Measurement of Cardiac Sampling and Pressure, Left Heart, Percutaneous Approach (ICD-10-PCS; 2022-01-22)
PROC: 5A09357 Assistance with Respiratory Ventilation, Less than 24 Consecutive Hours, Continuous Positive Airway Pressure (ICD-10-PCS; 2022-01-22)
DX: I11.0 Hypertensive heart disease with heart failure (principal); I50.43 Acute on chronic combined systolic (congestive) and diastolic (congestive) heart failure; I21.A1 Myocardial infarction type 2; J96.01 Acute respiratory failure with hypoxia; E87.2 Acidosis; J44.1 Chronic obstructive pulmonary disease with (acute) exacerbation; N39.0 Urinary tract infection, site not specified; I42.0 Dilated cardiomyopathy; E78.5 Hyperlipidemia, unspecified; E87.6 Hypokalemia; F17.210 Nicotine dependence, cigarettes, uncomplicated; F41.9 Anxiety disorder, unspecified; K21.9 Gastro-esophageal reflux disease without esophagitis; M19.90 Unspecified osteoarthritis, unspecified site; Z96.643 Presence of artificial hip joint, bilateral; Z20.822 Contact with and (suspected) exposure to COVID-19; Z82.49 Family history of ischemic heart disease and other diseases of the circulatory system
CPT/HCPCS: 36415; 36600; 71045; 71275; 80048; 80053; 80061; 82805; 83605; 83735; 83880; 84145; 84443; 84484; 85007; 85025; 85379; 85520; 85610; 85730; 87040; 87428; 93005; 93306; 93458; 94618; 94640; 94644; 94660; 94760; 96361; 96365; 96375; 99152; 99153; C1894; J0456; J0696; J1644; J1940; J2250; J2405; J2930; J3010; J3490; J7030; J7050; Q9967; U0003; 97530-GP; 97535-GO; 99291-25; C8929; G0378; J7613